=== PATIENT | female | born 1970 | race Caucasian/White ===

== ENCOUNTER 2022-11-12 09:39 | Emergency (ER) | payer OTHER, SELFPAY ==
[2022-11-12 09:40] VITALS: BP 130/55; PULSE 67; RESP 14; TEMP 36.2; O2SAT 99; BMI 27.0
--- NOTE | 2022-11-12 10:02 | EDS_ITS ---
HPI History of Present Illness Chief Complaint: Itching Informant: patient Onset/Context/Timing Onset: Days (3) Context: Gradual Onset Timing: Continuous Quality: Pruritic, erythematous Location: Generalized Worsened by: Nothing Relieved by: Nothing Narrative Narrative: Patient presents with generalized rash that has been getting worse over the past 3 days. Patient states she thinks it is poison flakita. Patient states he feels similar to prior episodes of poison flakita. Patient states she was in the [place] a few days ago. Patient states nothing makes it better nothing makes it worse. Patient states it is very pruritic. Patient denies any vesicles or pustules. Patient denies any discharge or drainage. Patient denies any fevers or chills. [facility] Medical History (Updated 11/12/22 @ 10:[address] Mahamed Lynch DO) Hypothyroidism Home Medications prednisone 20 mg tablet 60 mg (3 x 20 mg) PO DAILY #15 TABLETS 11/12/22 [Rx Last Taken Unknown] Surgical History (Updated 11/12/22 @ 10:[address] Mahamed Lynch DO) H/O section ROS ROS ED Constitutional Constitutional ED: Denies chills or fever(s) Eyes Eyes: Denies blurry vision or change in vision ENT ENT ED: Denies rhinorrhea or sore throat Cardiovascular Cardiovascular: Denies chest pain or palpitations Respiratory/Chest Respiratory/Chest: Denies cough or dyspnea Gastrointestinal Gastrointestinal: Denies nausea or vomiting Genitourinary Genitourinary ED: Denies dysuria or hematuria Musculoskeletal Musculoskeletal: Denies back pain or neck pain Integumentary Reports rash; Denies abscess Neurologic Neurologic: Denies headache(s) or weakness Allergic/Immunologic Allergic/Immunologic ED: Denies mouth swelling or urticaria EXAM Physical Exam Const Vital Signs: 11/12/22 09:40 Temperature 97.1 F L Temperature Source Temporal Pulse Rate 67 Respiratory Rate 14 Blood Pressure 130/55 H Blood Pressure Mean 80 Pulse Ox 99 Oxygen Delivery Method Room Air Positive well nourished and well developed General Appearance ED: well developed and NAD HEENT Reports moist mucous membranes Neck supple and no JVD Resp normal respiratory effort and clear to auscultation bilaterally Cardio regular rate and regular rhythm GI non-tender and non-distended Palpation: soft Neuro oriented x3, CN's II-XII intact bilaterally and no sensory deficits noted Sensorium / Orientation: alert Motor Exam: strength 5/5 throughout Psych mental status grossly normal Skin Skin Narrative: There is an erythematous patchy rash over the face, abdomen, chest, back, and bilateral upper and lower extremities. There are areas of linear vesicles noted over the extremities. There is no discharge or drainage. There is no crusting. There are no petechia noted. There is no involvement of the mucous membranes. MDM MDM MDM Narrative Medical decision making narrative: The rash is consistent with Rhus dermatitis. Patient was given injection of Decadron here. Patient was given a prescription for prednisone. Patient was instructed to use Benadryl or Claritin as needed for any itching. Patient was instructed to follow-up with her primary care physician in 5 to 7 days for reevaluation. Patient understood and was agreeable with the plan. All questions were answered. Discharge Plan Triage Chief Complaint: Itching ED Provider: Mahamed Lynch Dx/Rx/DC Orders Clinical Impression: Rhus dermatitis, Hypothyroidism Instructions: ED Poison Flakita Rash Prescriptions: New prednisone 20 mg tablet 60 mg PO DAILY Qty: 15 0RF Referrals: Greg Delaney MD [Non-Staff] - 5-7 Days Disposition Disposition: Home, Self Care
[2022-11-12] MEDS: dexAMETHasone 10 MG/ML Vial IM (10:21)
[2022-11-12 10:24] VITALS: BP 134/69; PULSE 73; RESP 15; O2SAT 98
== END 2022-11-12 10:27 | disposition home or self-care (01) ==
LOC: ED 10:24
PROVIDERS: Emergency Provider Emergency Medicine; Visit Provider Emergency Medicine
DX: L30.8 Other specified dermatitis (principal); E03.9 Hypothyroidism, unspecified
CPT/HCPCS: 96372; 99282

== ENCOUNTER 2024-12-03 07:52 | Emergency (ER) | payer OTHER, SELFPAY ==
[2024-12-03 07:53] VITALS: BP 136/76; PULSE 75; RESP 15; TEMP 37.6; O2SAT 98; BMI 27.3
--- NOTE | 2024-12-03 07:59 | EKG12_ITS ---
Test Reason : CP Blood Pressure : */* mmHG Vent. Rate : 72 BPM Atrial Rate : 72 BPM P-R Int : 140 ms QRS Dur : 90 ms QT Int : 406 ms P-R-T Axes : 34 20 -15 degrees QTcB Int : 444 ms Normal sinus rhythm Nonspecific T wave abnormality Abnormal ECG Confirmed by AMMON MASON MD ([id number]), editor magazine KERVIN SALAZAR ([id number]) on 12/06/2024 8:28:26 AM Referred By: Confirmed By: AMMON MASON MD
--- NOTE | 2024-12-03 08:04 | EX.ED.DYSGE1 ---
HPI History of Present Illness Chief Complaint: Chest Pain Narrative Narrative: Patient is a 54-year-old female past medical history hypothyroidism who presents to the emergency department chief complaint of chest pain. Patient states that she has had chest pain off-and-on and states that she not necessarily does anything specific to bring this on. Patient states that she follows with a chiropractor as her "ribs are out of place". States that on Friday she had an episode where she had pain in the middle of her chest. She states that she feels like it is hard for her to take a deep breath she states that she followed up with a chiropractor that did an adjustment and this did not help her symptoms. She told the on-call nurse for the primary care physician and they advised her to come here to be evaluated from a cardiac standpoint. Patient denies any recent travel history denies any history of blood clots. Patient denies any smoking, drug use or alcohol use. [facility] Medical History Hypothyroidism Home Medications Medication Instructions Recorded Last Taken Type prednisone 20 mg tablet 60 mg (3 x 20 mg) PO DAILY #15 11/12/22 Unknown Rx TABLETS Allergy/AdvReac Type Severity Reaction Status Date / Time No Known Allergies Allergy Verified 12/03/24 07:57 Surgical History H/O section Social History Smoking Status: Never smoker ROS ROS ED ROS Narrative Constitutional: Denies any fevers, chills, headaches, lightness, dizziness Cardiovascular: Denies any chest pain currently but complains of chest pain as above Respiratory: Complains of difficulty taking a deep breath denies coughing wheezing Abdomen: Denies abdominal pain nausea vomit diarrhea : Denies any urine symptoms Neurological: Denies any numbness, wheeze, tingling Musculoskeletal: Denies back pain Skin: Denies any rashes or lesions EXAM Physical Exam Narrative Exam Narrative: General: Patient was lying in bed rest comfortably did not appear to be in acute distress Head: Atraumatic, normocephalic Eyes: PERRL bilaterally, EOMI bilaterally, no conjunctival injection noted Neck: Soft, supple, trachea midline Cardiovascular: Regular rate and rhythm Respiratory: Clear to auscultation bilaterally Abdomen: Soft, nondistended Extremities: Radial pulses +2/4 in the bilateral extremities, +5/5 strength noted in the bilateral upper and lower extremities Neurological: Patient follow commands that she was at [facility] year is 2024 Skin: Warm, dry, intact Const Vital Signs: 12/03/24 07:53 12/03/24 07:59 12/03/24 08:15 Temperature 99.7 F H Temperature Source Oral Pulse Rate 75 Respiratory Rate 15 Respiratory Pattern Normal Blood Pressure 136/76 H Blood Pressure Mean 96 Pulse Ox 98 Oxygen Delivery Method Room Air Room Air 12/03/24 08:53 12/03/24 10:00 Temperature Temperature Source Pulse Rate 62 61 Respiratory Rate 20 H 18 Respiratory Pattern Blood Pressure 142/60 H Blood Pressure Mean 87 Pulse Ox 97 99 Oxygen Delivery Method Room Air MDM MDM MDM Narrative Medical decision making narrative: Patient is a 54-year-old female who presents to the emergency department from the chief complaint chest pain and difficulty taking a deep breath. On the differential diagnose includes but element to ACS, pneumonia, pneumothorax, PE. Once workup is obtained reviewed she will be reevaluated. Patient is pain-free at this point time. Patient CBC was reviewed showed no evidence leukocytosis white blood count normal at 5.5, he was 14.5, plate count of 312. Patient D-dimer negative at 0.32. Patient sodium normal 137, potassium normal 3.9, creatinine was normal at 0.91. Patient's troponin was less than 6 with a delta troponin of less than 6. Patient's EKG showed sinus rhythm rate of 72 bpm. Patient's chest x-ray reviewed by myself and by radiology showed no acute focal consolidations. HEART Score for Major Cardiac Events from [email or web address] on 12/03/2024 All calculations should be rechecked by clinician prior to use RESULT SUMMARY: 1 points Low Score (0-3 points) Risk of MACE of 0.9-1.7%. INPUTS: History —> 0 = Slightly suspicious EKG —> 0 = Normal Age —> 1 = 45-64 Risk factors —> 0 = No known risk factors Initial troponin —> 0 = <=ormal limit On reevaluation the patient she is feeling better she would like to go home at this point in time. Patient was advised that she needs to call her primary care physician and obtain stress test in the outpatient setting. Patient's heart score is low risk. She is agreeable this plan all question concerns answered she was discharged home in stable condition. Lab Data Labs: Laboratory Results - last 24 hr 12/03/24 12/03/24 08:10 10:15 WBC 5.5 RBC 4.51 Hgb 14.5 Hct 41.9 MCV 92.9 MCH 32.2 H MCHC 34.6 RDW Std Deviation 40.9 RDW Coeff of Og 12.0 Plt Count 312 MPV 9.6 Immature Gran % (Auto) 0.700 Neut % (Auto) 64.5 Lymph % (Auto) 22.8 [place] % (Auto) 8.9 Eos % (Auto) 1.8 Baso % (Auto) 1.3 H Absolute Neuts (auto) 3.5 Absolute Lymphs (auto) 1.25 Nucleated RBC % 0 D-Dimer Quant (PE/DVT) 0.32 Sodium 137 Potassium 3.9 Chloride 103 Carbon Dioxide 22.1 Anion Gap 12 BUN 18 Creatinine 0.91 Estim Creat Clear Calc 78.44 Est GFR (MDRD) Non-Af 76 BUN/Creatinine Ratio 19.6 Glucose 135 H Calcium 9.3 Troponin T High Sens < 6 Troponin T Hi Sens 2 Hr < 6 Radiography Diagnostic Testing: Clinical Impression(s) from Imaging Studies Chest X-Ray 12/03/24 08:30 IMPRESSION: No focal consolidations. Reading Location: [facility] [address] Discharge Plan Triage Chief Complaint: Chest Pain ED Provider: Logan Akhtar Dx/Rx/DC Orders Clinical Impression: Chest pain, Hypothyroidism Prescriptions: No Action prednisone 20 mg tablet 60 mg PO DAILY Qty: 15 0RF Primary Care Provider: Angelic Alfonso Referrals: Angelic Alfonso NP-C [Primary Care Provider] - Activity Restrictions/Additional Instructions: Follow-up with your doctor in the outpatient setting. Have a cardiac stress test obtained. Return with worsening symptoms or any other concerns in the meantime. Your blood work here today did not show any acute findings your chest x-ray was normal. Print Language: Slovak Disposition Disposition: Home, Self Care
[2024-12-03 08:22] LABS: Hematocrit 41.9 % (37-47); Hemoglobin 14.5 g/dL (12.0-15.0); Immature Granulocytes Count 0.040 X10^3/uL (0.0-0.0); Mean Corp Hgb Conc 34.6 g/dL (32-36); Mean Corpuscular Volume 92.9 fL (81-99); Mean Platelet Vol. 9.6 fl (6.2-12.0); NRBC Flagged by Analyzer 0 % (0-5); Platelet Count 312 K/mm3 (150-450); RBC Distribution Width CV 12.0 % (11.6-14.6); RBC Distribution Width SD 40.9 fl (35.1-43.9); Red Blood Count 4.51 M/mm3 (4.2-5.4); White Blood Count 5.5 K/mm3 (4.4-11.0)
--- NOTE | 2024-12-03 08:30 | RAD_ITS ---
PROCEDURE: CHEST PA AND LATERAL 12/03/2024 REASON FOR EXAM: CHEST PAIN TECHNIQUE: CHEST PA AND LATERAL COMPARISON: None FINDINGS: No focal consolidation. No pleural effusion or pneumothorax. Cardiac silhouette is within normal limits. No acute fractures. RAD/Chest PA and Lateral IMPRESSION: No focal consolidations. Reading Location: [id number]
[2024-12-03 08:34] LABS: D-Dimer Quantitative (DVT/PE) 0.32 FEU/ug/m (0.27-0.49)
[2024-12-03] MEDS: 0.9% Normal Saline (1000mL) 1,000 ML 999 ML IV (08:44)
[2024-12-03 08:53] VITALS: BP 142/60; PULSE 62; RESP 20; O2SAT 97
[2024-12-03 09:01] LABS: Troponin T High Sensitivity < 6 ng/L (<=14)
[2024-12-03 09:05] LABS: Anion Gap 12 (5-15); BUN 18 mg/dL (4-19); BUN/Creat Ratio 19.6 RATIO (10-20); Calcium,Total 9.3 mg/dL (7.6-11.0); Carbon Dioxide 22.1 mmol/L (21.0-32.0); Chloride 103 mmol/L (98-108); Estimated Creatinine Clearance 78.44 ml/min (50-250); Glucose 135 mg/dL (70-99); Potassium 3.9 mmol/L (3.3-5.1)
[2024-12-03 10:00] VITALS: PULSE 61; RESP 18; O2SAT 99
[2024-12-03 10:46] LABS: Troponin T High Sens 2 HR < 6 ng/L (<=14)
[2024-12-03 11:19] VITALS: BP 142/60; PULSE 71; RESP 14; TEMP 36.6; O2SAT 97
--- OUTSIDE RECORDS SUMMARY | 2024-12-03 11:33 | XMS RPT_ITS | CCD ---
Author Organization [facility] Inform ion Partnership [facility] Care Team Providers Care Cookie Mixer Helper Name Role Phone Renard Walker Primary Care Provider [phone] Mahamed Lynch Attending Unavailable Care Physician, No Primary Primary Care Unava ilable Renard Walker MD Primary Care Provider LETTY ALFONSO Attending Unavailable RENARD WALKER Primary Care Unavailable LETTY ALFONSO Attending Unavailable RENARD WALKER Primary Care Unavailable Kaden RAILROAD SHOP INSPECTOR-C, Letty Primary Care Provider Dr. Logan Akhtar DO Emergency Provider Medications Current Medications Medication Drug Class(es) Dates Sig (Normalized) Sig (Original) azithromycin 250 mg oral tablet (1 source) Macrolide Antimicrobial Start: 01-06-2023 End: 01-11-2023 azithromycin (Zithromax) 250 MG tablet Indications: Acute non-recurrent frontal sinusitis Take 2 tabs (500 mg) by mouth today, than 1 daily for 4 days. 6 tablet 0 01/06/2023 01/11/2023 Active hydrocortisone 10 mg/ml / neomycin 3.5 mg/ml / polymyxin b 32585 unt/ml otic suspension (1 source) Aminoglycoside Antibacterial, Polymyxin-class Antibacterial, Corticosteroid Start: 01-03-2022 End: 01-08-2022 neomycin-polymyxin- hydrocortisone (CORTISPORIN) 3.5-10,000-1 mg/mL-unit/mL-% otic suspension Indications: Acute otitis externa of left ear, unspecified type Use 4 Drops in both ears three times daily for 5 days. 10 mL 0 01/03/2022 01/08/2022 Active Comment on above: Use 4 Drops in both ears three times daily for 5 days. levothyroxine sodium 0.112 mg oral tablet (12 sources) l-Thyroxine Start: 07-15-2023 End: 05-27-2024 take 1 tablet by mouth once daily levothyroxine (Synthroid) 112 MCG tablet Indications: Hypothyroidism (acquired) Take 1 tablet (112 mcg) by mouth daily. 90 tablet 3 05/27/2024 Active Start: 05-10-2022 End: 01-31-2023 take 1 tablet by mouth once daily levothyroxine (Synthroid, Levoxyl) 112 MCG tablet Indications: Hypothyroidism (acquired) Take 1 tablet (112 mcg) by mouth daily. 90 tablet 1 01/31/2023 Active levothyroxine (S YNTHROID) 100 mcg tablet Indications: Viral URI with cough Take 112 mcg by mouth daily before breakfast. 0 Active Comment on above: Take 112 mcg by mout h daily before breakfast. predniSONE 20 mg oral tablet (2 sources) Start: 11-12-2022 take 3 tablets by mouth once daily Prednisone 20 mg tablet Active 60 mg PO DAILY November 12, 2022 12:00am Start: 11-12-2022 take 60 mg by mouth once daily Prednisone Active 60 MG PO DAILY November 12, 2022 12:00am Completed/Discontinued Medications Medication Drug Class(es) Dates Sig (Normalized) Sig (Original) ciprofloxacin 3 mg/ml / dexamethasone 1 mg/ml otic suspension (1 source) Corticosteroid, Quinolone Antimicrobial Start: 01-03-2022 End: 01-03-2022 ciprofloxacin-dex AMETHasone (CIPRODEX) 0.3-0.1 % otic suspension Indications: Acute otitis externa of left ear, unspecified type Use 4 Drops in the left ear twice daily. 7.5 mL 0 01/03/2022 01/03/2022 Discontinued Comment on above: Use 4 Drops in the l eft ear twice daily. fluticasone propionate 0.05 mg/actuat metered dose nasal spray (1 source) Corticosteroid Start: 01-03-2022 take 1 spray(s) nasal route once daily fluticasone (FLONASE ALLERGY RELIEF) 50 mcg/actuation nasal spray Indications: Acute otitis externa of left ear, unspecified type Use 1 [place] in each nostril once daily. 9.9 mL 0 01/03/2022 Active Comment on above: Use 1 [place] in each nostril once daily. Problems Active Problems Problem Classification Problem Date Documented Da te Episodic/Chronic Allergic reactions (10 sources) Contact dermatitis due to Genus Toxicodendron; Translations: [Unspecified contact dermatitis due to plants, except food] Onset: 11-19-2022 Resolved: 04-14-2023 11-12-2022 Episodic Disorders of lipid metabolism (9 sources) Pure hypercholesterolemi a; Translations: [Pure hypercholesterolemi a, unspecified] Onset: 07-14-2015 02-25-2022 Chronic Menstrual disorders (1 source) Dysmenorrhea; Translations: [Dysmenorrhea, unspecified] Onset: 07-07-2008 07-07-2008 Chronic Nonspecific chest pain (1 source) Chest pain; Translations: [Chest pain, unspecified] 12-03-2024 Episodic Other ear and sense organ disorders (1 source) Acute otitis externa of left ear; Translations: [Unspecified acute noninfective otitis externa, left ear] Episodic Sprains and strains (4 sources) Shoulder strain; Translations: [Strain of unspecified muscle, fascia and tendon at shoulder and upper arm level, left arm, initial encounter] Onset: 05-26-2024 05-26-2024 Episodic Thyroid disorders (18 sources) Acquired hypothyroidism; Translations: [Hypothyroidism, unspecified] Onset: 07-14-2015 10-29-2022 Chronic Past or Other Problems Problem Classification Problem Date Documented Da te Episodic/Chronic Other female genital disorders (1 source) Hypertrophy of uterus; Translations: [Hypertrophy of uterus] Onset: 07-07-2008 07-07-2008 Episodic Other screening for suspected conditions (not mental disorders or infectious disease) (9 sources) Patient encounter status; Translations: [Encounter for screening for lipoid disorders] Onset: 09-08-2023 09-08-2023 Episodic Other upper respiratory infections (8 sources) Acute frontal sinusitis; Translations: [Acute frontal sinusitis, unspecified] Onset: 01-06-2023 Resolved: 04-14-2023 01-06-2023 Episodic Residual codes; unclassified (5 sources) Mammogram declined; Translations: [Procedure and treatment not carried out because of patient's decision for unspecified reasons] Onset: 09-08-2023 09-08-2023 Episodic Residual codes; unclassified (5 sources) Patient refused laboratory test; Translations: [Procedure and treatment not carried out because of patient's decision for unspecified reasons] Onset: 09-08-2023 09-08-2023 Episodic Residual codes; unclassified (5 sources) Colon cancer screening declined; Translations: [Procedure and treatment not carried out because of patient's decision for unspecified reasons] Onset: 09-08-2023 09-08-2023 Episodic Results Test Name Value Interpretation Reference Range Facility Absolute lymphocyte countOrd ered By: Logan Akhtar on 12-03-2024 Lymphocytes Auto (Unsp spec) [#/Vol] 1.25 10*3/uL 0.83-4.51 [facility] Absolute neutrophil countOrd ered By: Logan Akhtar on 12-03-2024 Neutrophils (Bld) [#/Vol] 3.5 10*3/uL 2.0-7.7 [facility] Anion gap in Serum or Plasma Ordered By: Logan Akhtar on 12-03-2024 Anion gap [Moles/Vol] 12 mmol/L 5-15 [facility] Automated lymphocyte count a s percentage of total leukocytesOrdered By: Logan Akhtra on 12-03-2024 Lymphocytes/100 WBC Auto (Unsp spec) 22.8 % 19-41 [facility] BUN/creatinine ratioOrdered By: Logan Akhtar on 12-03-2024 Urea nitrogen/Creatinine [Mass ratio] 19.6 mg/mg 10-20 [facility] Basophil percentageOrdered B y: Logan Akhtar on 12-03-2024 Basophils/100 WBC (Bld) 1.3 % High 0-1 [facility] Carbon dioxide, total [Moles /volume] in Central venous bloodOrdered By: Logan Akhtar on 12-03-2024 CO2 [Moles/Vol] 22.1 mmol/L 21.0-32.0 [facility] Chloride assayOrdered By: Aidan Akhtar on 12-03-2024 Chloride [Moles/Vol] 103 mmol/L 98-108 [facility] Eosinophil percentageOrdered By: Logan Akhtar on 12-03-2024 Eosinophils/100 WBC (Bld) 1.8 % 0-5 [facility] Erythrocyte distribution wid th ratioOrdered By: Logan Akhtar on 12-03-2024 Erythrocyte distribution width (RBC) [Ratio] 12.0 % 11.6-14.6 [facility] Erythrocyte distribution wid th standard deviationOrdered By: Logan Akhtar on 12-03-2024 Erythrocyte distribution width (RBC) [Ratio] 40.9 fl 35.1-43.9 [facility] Glomerular filtration rate ( GFR) estimation/1.73 sq m using serum, plasma, or whole bOrdered By: Logan Akhtar on 12-03-2024 GFR/1.73 sq M.predicted among non-blacks MDRD (S/P/Bld) [Vol rate/Area] 76 mL/min/{1.73_m2} >60 [facility] Comment on above: mL/min/1.73m2 CKD-EP I Creatinine Equation (2020) Hematocrit Auto (Bld) [Volum e fraction]Ordered By: Logan Akhtar on 12-03-2024 Hematocrit (Bld) [Volume fraction] 41.9 % 37-47 [facility] Hemoglobin measurementOrdere d By: Logan Akhtar on 12-03-2024 Hemoglobin (Bld) [Mass/Vol] 14.5 g/dL 12.0-15.0 [facility] Immature granulocytes/100 WB C Auto (Bld)Ordered By: Logan Akhtar on 12-03-2024 Immature granulocytes/100 WBC (Bld) 0.700 % 0.0-0.9 [facility] Comment on above: IG% - Immature Granu locytes (promyelocytes, myelocytes and metamyelocytes) > 1% indicates that a LEFT SHIFT is Present. MCV (mean corpuscular volume ) determinationOrdered By: Logan Akhtar on 12-03-2024 MCV (RBC) [Entitic vol] 92.9 fL 81-99 [facility] Mean corpuscular hemoglobin (MCH) determinationOrdered By: Logan Akhtar on 12-03-2024 MCH (RBC) [Entitic mass] 32.2 pg High 27.0-32.0 [facility] Mean corpuscular hemoglobin concentration (MCHC) determinationOrdered By: Logan Akhtar on 12-03-2024 MCHC (RBC) [Mass/Vol] 34.6 g/dL 32-36 [facility] Mean platelet volume determi nationOrdered By: Logan Akhtar on 12-03-2024 Platelet mean volume (Bld) [Entitic vol] 9.6 fL 6.2-12.0 [facility] Monocyte percentageOrdered B y: Logan Akhtar on 12-03-2024 Monocytes/100 WBC (Bld) 8.9 % 0-10 [facility] Neutrophil percentageOrdered By: Logan Akhtar on 12-03-2024 Neutrophils/100 WBC (Bld) 64.5 % 47-70 [facility] Nucleated red blood cell per centageOrdered By: Logan Akhtar on 12-03-2024 Nucleated RBC/100 WBC (Bld) [Ratio] 0 % 0-5 [facility] Platelet countOrdered By: Aidan Akhtar on 12-03-2024 Platelets (Bld) [#/Vol] 312 10*3/uL 150-450 [facility] Potassium measurement (mass/ volume)Ordered By: Logan Akhtar on 12-03-2024 Potassium (Unsp spec) [Mass/Vol] 3.9 mmol/L 3.3-5.1 [facility] RBC Auto (Bld) [#/Vol]Ordere d By: Logan Akhtar on 12-03-2024 RBC (Bld) [#/Vol] 4.51 10*6/uL 4.2-5.4 [facility] Serum creatinine measurement (mass/volume)Ordered By: Logan Akhtar on 12-03-2024 Creatinine [Mass/Vol] 0.91 mg/dL 0.70-1.20 [facility] Serum glucose measurement (m ass/volume)Ordered By: Logan Akhtar on 12-03-2024 Glucose [Mass/Vol] 135 mg/dL High 70-99 [facility] Serum or plasma calcium alexis urement (mass/volume)Ordered By: Logan Akhatr on 12-03-2024 Calcium [Mass/Vol] 9.3 mg/dL 7.6-11.0 [facility] Serum or plasma urea nitroge n measurement (mass/volume)Ordered By: Logan Akhtar on 12-03-2024 Urea nitrogen [Mass/Vol] 18 mg/dL 4-19 [facility] Sodium levelOrdered By: Maximilian Akhtar on 12-03-2024 Sodium [Moles/Vol] 137 mmol/L 133-145 [facility] Troponin T.cardiac [Mass/vol ume] in Serum or Plasma by High sensitivity methodOrdered By: Logan Akhtar on 12-03-2024 Troponin T.cardiac High sensitivity method [Mass/Vol] < 6 ng/L <14 [facility] Troponin T.cardiac High sensitivity method [Mass/Vol] < 6 ng/L <14 [facility] White blood cell (WBC) count Ordered By: Logan Akhtar on 12-03-2024 WBC (Bld) [#/Vol] 5.5 10*3/uL 4.4-11.0 [facility] TSHon 05-27-2024 TSH Qn 2.28 m[IU]/L mIU/L [facility] Comment on above: Reference Range > or = 20 Years 0.40-4.50 Ranges First trimester 0.26-2.66 Second trimester 0.55-2.73 Third trimester 0.43-2.91 TSH Qnon 05-27-2024 [facility] 29on 05-26-2024 29 Addended by: LETTY ALFONSO on: 05/27/2024 06:37 AM Modules accepted: Orders Normal [facility] Office Visiton 05-26-2024 Follow-up visit [id number] Little Gonsales 1970 F Date Provider Department Center 05/26/2024 [id number] ALFONSO [facility] Family History Problem Relation Age of Onset High Blood Pressure Mother No Known Problems Father Family Status - Relation Status Age at Mother Alive Father Level of Service:99844 [place] OFFICE/OUTPATIENT ESTABLISHED LOW MDM 20 MIN Reason for Visit and Comments: Medication Check [[id number]] Health Maintenance [872] - Cervical Cancer Screening-Ref to OBGYN Pneumococcal Vaccine-declined Influenza Vaccine-declined COVID-19 Vaccine-declined Normal [facility] Progress Noteon 05-26-2024 Progress Note Check TSH today. Continue levothyroxine 112 mcg daily Normal [facility] Progress Note Consistent with mild left shoulder strain. Recommend RICE, then starting exercises provided. Follow-up for worsening or failure for symptoms to continue to improve Normal [facility] Progress Note 05/26/2024 Little Gonsales (: 1970) is a 53 y.o. female , Established patient, here for evaluation of the following chief complaint(s): Medication Check and Health Maintenance (Cervical Cancer Screening-Ref to OBGYN/Pneumococcal Vaccine-declined/Influe nza Vaccine-declined/COVID- 19 Vaccine-declined/) ASSESSMENT/PLAN: 1. Hypothyroidism (acquired) Assessment & Plan: Check TSH today. Continue levothyroxine 112 mcg daily Orders: - TSH 2. Left shoulder strain, initial encounter Assessment & Plan: Consistent with mild left shoulder strain. Recommend RICE, then starting exercises provided. Follow-up for worsening or failure for symptoms to continue to improve Follow up in about 1 year (around 05/26/2025) for as directed pending test results. SUBJECTIVE/OBJECTIVE: HPI - Little Gonsales (: 1970) is a 53 y.o. female , Established patient, here for the evaluation of the following chief complaint(s): Medication Check and Health Maintenance (Cervical Cancer Screening-Ref to OBGYN/Pneumococcal Vaccine-declined/Influe nza Vaccine-declined/COVID- 19 Vaccine-declined/) Patient presents for med check today, denies any acute concerns. Declines any blood work today other than TSH. Reports taking her levothyroxine 112 mcg consistently with only occasional missed dose. Patient does report she occasionally has some soreness of her left shoulder usually flared up after skiing. No numbness or tingling and range of motion is only minimally affected with raising arm above the head. Prior to Admission medications Medication Sig Start Date End Date Taking? Authorizing Provider levothyroxine (Synthroid) 112 MCG tablet TAKE 1 TABLET BY MOUTH ONCE A DAY 07/15/23 Yes Renard Walker MD Review of Systems Constitutional: Negative. HENT: Negative. Respiratory: Negative. Cardiovascular: Negative. Gastrointestinal: Negative. Genitourinary: Negative for difficulty urinating. Musculoskeletal: Negative. Neurological: Negative. Psychiatric/Behavioral: Negative. Vitals: 05/26/24 1300 BP: 119/66 Pulse: 75 Resp: 20 Temp: 36.8 ?C (98.3 ?F) TempSrc: Infrared SpO2: 96% Weight: 178 lb 12.8 oz (81.1 kg) Physical Exam Constitutional: General: She is not in acute distress. Appearance: Normal appearance. She is not ill-appearing. HENT: Head: Normocephalic and atraumatic. Mouth/Throat: Mouth: Mucous membranes are moist. Pharynx: Oropharynx is clear. No oropharyngeal exudate or posterior oropharyngeal erythema. Eyes: Conjunctiva/sclera: Conjunctivae normal. Cardiovascular: Rate and Rhythm: Normal rate and regular rhythm. Pulses: Normal pulses. Heart sounds: Normal heart sounds. Pulmonary: Effort: Pulmonary effort is normal. Breath sounds: Normal breath sounds. Musculoskeletal: Left shoulder: Decreased range of motion. Comments: Very slight decreased shoulder abduction, otherwise normal range of motion Lymphadenopathy: Cervical: No cervical adenopathy. Neurological: Mental Status: She is alert and oriented to person, place, and time. Psychiatric: Mood and Affect: Mood normal. Behavior: Behavior normal. Thought Content: Thought content normal. Judgment: Judgment normal. An electronic signature was used to authenticate this note. JOSEPHINE Green CNP 05/26/2024 1:39 PM [facility] Progress Note Patient was identifi ed by name and Date of . Health Maintenance Due Topic Cervical Cancer Screening-Ref to OBGYN Pneumococcal Vaccine-declined Influenza Vaccine-declined COVID-19 Vaccine-declined [facility] 36on 05-20-2024 36 Noted. Agree with disposition. [facility] 36 Notified, she states she will have it drawn at the appointment, not prior. [facility] 36 Name of caller: Guerline lopez Contact phone number: [phone] Relationship to Patient: patient Provider: Letty GRULLON Practice: [facility] Chief Complaint/Reason for Call: Patient stated she is scheduled for med refill appointment on 05/26/24 and is inquiring if Letty wants to put the lab order in before her appointment to check her thyroid. Patient stated she is not interested in checking her cholesterol. Please advise. Thank you. Best time of day caller can be reached: any Patient advised that office/PCP has 24-48 business hours to return their call: No [facility] Office Visiton 09-08-2023 Follow-up visit [id number] Little Gonsales 1970 F Date Provider Department Center 09/08/2023 [id number] ALFONSO [facility] Family History Problem Relation Age of Onset High Blood Pressure Mother No Known Problems Father Family Status - Relation Status Age at Mother Alive Father Level of Service:89391 [place] PERIODIC PREVENTIVE MED EST PATIENT 40-64YRS Reason for Visit and Comments: Annual Exam [83] Health Maintenance [872] - HIV/Hep C-declined Colon-declined Tdap-declined Pap-declined Hep B-declined Mammo-pended Zoser-declined Covid-declined PHQ-completed TSH-pe- nded Normal [facility] Progress Noteon 09-08-2023 Progress Note Check lipid panel. Currently not on any medications. Normal [facility] Progress Note Check TSH today. Continue levothyroxine 112 mcg daily Normal [facility] Progress Note 09/08/2023 Little Gonsales (: 1970) is a 53 y.o. female , Established patient, here for evaluation of the following chief complaint(s): Annual Exam and Health Maintenance (/HIV/Hep C-declined/Colon-declin ed/Tdap-declined/Pap-de clined/Hep B-declined/Mammo-pended /Zoser-declined/Covid-d eclined/PHQ-completed/T SH-pended) ASSESSMENT/PLAN: 1. Annual physical exam 2. Screening for cholesterol level - Lipid panel 3. Screening for deficiency anemia - CBC 4. Screening for diabetes mellitus - Comprehensive metabolic panel 5. Hypothyroidism (acquired) Assessment & Plan: Check TSH today. Continue levothyroxine 112 mcg daily Orders: - TSH 6. Pure hypercholesterolemia Assessment & Plan: Check lipid panel. Currently not on any medications. 7. Mammogram declined 8. Pap smear of cervix declined 9. Colon cancer screening declined Follow up for as directed pending test results. SUBJECTIVE/OBJECTIVE: HPI - Little Gonsales (: 1970) is a 53 y.o. female , Established patient, here for the evaluation of the following chief complaint(s): Annual Exam and Health Maintenance (/HIV/Hep C-declined/Colon-declin ed/Tdap-declined/Pap-de clined/Hep B-declined/Mammo-pended /Zoser-declined/Covid-d eclined/PHQ-completed/T SH-pended) Presents for her annual physical with fasting labs. Declines mammogram. Declines Pap smear. Declines colon cancer screening. Reports overall is feeling pretty well. Things at home are going okay however her suffers from bipolar disorder currently manic. She states she has limited time for today's appointment due to he has an appointment at [place] at 9:30 AM this morning. She reports that she has been handling everything pretty well and has set up some counseling services for herself online that starts soon. She has no acute complaints today. Prior to Admission medications Medication Sig Start Date End Date Taking? Authorizing Provider levothyroxine (Synthroid) 112 MCG tablet TAKE 1 TABLET BY MOUTH ONCE A DAY 07/15/23 Yes Renard Walker MD Review of Systems Constitutional: Negative. HENT: Negative. Respiratory: Negative. Cardiovascular: Negative. Genitourinary: Negative. Neurological: Negative. Psychiatric/Behavioral: Negative for agitation, decreased concentration, dysphoric mood, hallucinations, self-injury, sleep disturbance and suicidal ideas. The patient is not nervous/anxious. Vitals: 09/08/23 0814 BP: 118/60 Pulse: 57 Resp: 18 Temp: 36.6 ?C (97.9 ?F) TempSrc: Infrared SpO2: 97% Weight: 170 lb (77.1 kg) Height: 5' 7" (1.702 m) Physical Exam Constitutional: General: She is not in acute distress. Appearance: Normal appearance. She is normal weight. She is not ill-appearing. HENT: Head: Normocephalic and atraumatic. Right Ear: Tympanic membrane, ear canal and external ear normal. There is no impacted cerumen. Left Ear: Tympanic membrane, ear canal and external ear normal. There is no impacted cerumen. Nose: Nose normal. No congestion or rhinorrhea. Mouth/Throat: Mouth: Mucous membranes are moist. Pharynx: Oropharynx is clear. Uvula midline. No oropharyngeal exudate or posterior oropharyngeal erythema. Eyes: Conjunctiva/sclera: Conjunctivae normal. Pupils: Pupils are equal, round, and reactive to light. Cardiovascular: Rate and Rhythm: Normal rate and regular rhythm. Pulses: Normal pulses. Heart sounds: Normal heart sounds. Pulmonary: Effort: Pulmonary effort is normal. No respiratory distress. Breath sounds: Normal breath sounds. Abdominal: General: Abdomen is flat. Bowel sounds are normal. Palpations: Abdomen is soft. Tenderness: There is no abdominal tenderness. There is no right CVA tenderness or left CVA tenderness. Musculoskeletal: General: Normal range of motion. Cervical back: Normal range of motion and neck supple. No rigidity or tenderness. Lymphadenopathy: Cervical: No cervical adenopathy. Skin: General: Skin is warm and dry. Findings: No erythema or rash. Neurological: General: No focal deficit present. Mental Status: She is alert and oriented to person, place, and time. Psychiatric: Mood and Affect: Mood normal. Behavior: Behavior normal. An electronic signature was used to authenticate this note. Letty Alfonso, CLUTCH INSPECTOR - RADIATION CONTROL TECHNICIAN 09/08/2023 8:49 AM [facility] Progress Note Patient was identifi ed by name and Date of . Health Maintenance Addressed with Patient at Visit: HIV/Hep C-declined Colon-declined Tdap-declined Pap-declined Hep B-declined Mammo-pended Zoser-declined Covid-declined PHQ-completed TSH-pended [facility] 36on 07-15-2023 36 Patient scheduled 09/08/23 with Kaden [facility] 36 Rx sent, no refills, she needs a follow-up appointment to continue to get medications. [facility] 36 Prescription Request : Last medication check: 12/04/22 Last physical exam: 04/17/22 Next scheduled appointment: na Last date of refill on this medication 01/31/23 MCM message sent advising patient to schedule physical and fasting albs work. [facility] Emergency Department Summary on 11-12-2022 Emergency Department Summary [facility] Medical Records Department [address] [place] [address] Emergency Department Summary 11/12/22 MR#: [id number] Acct: [id number] Name: LITTLE GONSALES Rep #: [id number] : 1970 52 From: Mahamed Lynch DO PCP: Care Physician,No Primary Status:DEP ER Location: ED HPI History of Present Illness Chief Complaint: Itching Informant: patient Onset/Context/Timing Onset: Days (3) Context: Gradual Onset Timing: Continuous Quality: Pruritic, erythematous Location: Generalized Worsened by: Nothing Relieved by: Nothing Narrative Narrative: Patient presents with generalized rash that has been getting worse over the past 3 days. Patient states she thinks it is poison jarod. Patient states he feels similar to prior episodes of poison jarod. Patient states she was in the [place] a few days ago. Patient states nothing makes it better nothing makes it worse. Patient states it is very pruritic. Patient denies any vesicles or pustules. Patient denies any discharge or drainage. Patient denies any fevers or chills. [facility] Medical History (Updated 11/12/22 @ 10:[address] Mahamed Lynch, ) Hypothyroidism Home Medications prednisone 20 mg tablet 60 mg (3 x 20 mg) PO DAILY #15 TABLETS 11/12/22 [Rx Last Taken Unknown] Surgical History (Updated 11/12/22 @ 10:[address] Mahamed Lynch, ) H/O section ROS ROS ED Constitutional Constitutional ED: Denies chills or fever(s) Eyes Eyes: Denies blurry vision or change in vision ENT ENT ED: Denies rhinorrhea or sore throat Cardiovascular Cardiovascular: Denies chest pain or palpitations Respiratory/Chest Respiratory/Chest: Denies cough or dyspnea Gastrointestinal Gastrointestinal: Denies nausea or vomiting Genitourinary Genitourinary ED: Denies dysuria or hematuria Musculoskeletal Musculoskeletal: Denies back pain or neck pain Integumentary Reports rash; Denies abscess Neurologic Neurologic: Denies headache(s) or weakness Allergic/Immunologic Allergic/Immunologic ED: Denies mouth swelling or urticaria EXAM Physical Exam Const Vital Signs: 11/12/22 09:40 Temperature 97.1 F L Temperature Source Temporal Pulse Rate 67 Respiratory Rate 14 Blood Pressure 130/55 H Blood Pressure Mean 80 Pulse Ox 99 Oxygen Delivery Method Room Air Positive well nourished and well developed General Appearance ED: well developed and NAD HEENT Reports moist mucous membranes Neck supple and no JVD Resp normal respiratory effort and clear to auscultation bilaterally Cardio regular rate and regular rhythm GI non-tender and non-distended Palpation: soft Neuro oriented x3, CN's II-XII intact bilaterally and no sensory deficits noted Sensorium / Orientation: alert Motor Exam: strength 5/5 throughout Psych mental status grossly normal Skin Skin Narrative: There is an erythematous patchy rash over the face, abdomen, chest, back, and bilateral upper and lower extremities. There are areas of linear vesicles noted over the extremities. There is no disc harge or drainage. There is no crusting. There are no petechia noted. There is no involvement of the mucous membranes. MDM MDM MDM Narrative Medical decision making narrative: The rash is consistent with Rhus dermatitis. Patient was given injection of Decadron here. Patient was given a prescription for prednisone. Patient was instructed to use Benadryl or Claritin as needed for any itching. Patient was instructed to follow-up with her primary care physician in 5 to 7 days for reevaluation. Patient understood and was agreeable with the plan. All questions were answered. Discharge Plan Triage Chief Complaint: Itching ED Provider: Mahamed Lynch Dx/Rx/DC Orders Clinical Impression: Rhus dermatitis, Hypothyroidism Instructions: ED Poison Jarod Rash Prescriptions: New prednisone 20 mg tablet 60 mg PO DAILY Qty: 15 0RF Referrals: Renard Walker MD [Non-Staff] - 5-7 Days Disposition Disposition: Home, Self Care What to do if you have Problems For any increased pain, shortness of breath, bleeding, nausea or vomiting, chest pain, or any unexpected problems, contact your Primary Care Provider. Call [facility] ([phone]) or report to the closest Emergency Room. Call 911 if necessary. 11/12/22 1621 Cosigner Signature (if applicable): CC: No Primary Care Physician Signed Normal [facility] CNOVon 01-03-2022 CNOV Office Visit (FILIPE ) LITTLE GONSALES ([id number]) 1970 F Date Time Provider Department 01/03/22 9:15 AM ANDRE SANTAMARIA During your visit today, we recorded the following information about you: Temperature Pulse Respiration Blood pressure 98.7 degrees 64/minute 6/minute 122/69 Weight Height 77.1 kg 1.702 m Andre Santamaria APRN.CNP 01/03/2022 10:25 AM Signed This note was created using ticketstreetriter. Subjective Little Gonsales is a 51 year old female. HPI by patient: Little is a 51 yo female presenting to the office with the complaint of L ear pain Started approximately a few weeks ago, was at family reunion and had some ear trauma while swimming. Jumped in the water and landed on ear. Associated symptoms include L ear pain and decreased hearing in L ear Denies any other concerns Vaccinated for influenza: No Covid Immunization Dates Overdue - COVID-19 VACCINE (1) Overdue - never done No completion, postpone, frequency change, or communication history exists for this topic. Personal history of Covid: no Flu/RSV contacts: no Strep contacts: no Sick contacts: no Covid + contacts: no Travel in the last 14 days: no Smoking history/second hand smoke: no OTC ear candles, peroxide, colloidal silver drops No antibiotic use in the last 60 days. ALLERGIES No Known Allergies Family History Reviewed Including Cardiac Diseases, Psychiatric Diseases, AND Substance Abuse Problem: Hypertension Relation: Mother Age of Onset: (Not Specified) Problem: Stroke Relation: Other Age of Onset: (Not Specified) Comment: UNCLE Problem: Stroke Relation: Other Age of Onset: (Not Specified) Comment: GRANDMOTHER Problem: Thyroid Relation: Daughter Age of Onset: (Not Specified) Comment: hypo Problem: Thyroid Relation: Sister Age of Onset: (Not Specified) Comment: X-3 One Graves and 2 hypo Social History Tobacco Use Smoking status: Never Smokeless tobacco: Never Vaping Use Vaping Use: Never used Alcohol use: No Drug use: No Review of Systems Constitutional: Negative for chills and fever. HENT: Positive for ear discharge (mostly residual medications drops. Also got a lot of wax out after using ear candle), ear pain and hearing loss (decreased hearing). Negative for congestion, rhinorrhea and sore throat. Respiratory: Negative for cough. Cardiovascular: Negative for chest pain. Allergic/Immunologic: Negative for immunocompromised state. Hematological: Negative for adenopathy. Objective LMP 11/26/2019 Physical Exam Vitals and nursing note reviewed. HENT: Right Ear: Ear canal normal. A middle ear effusion is present. Left Ear: Ear canal normal. Drainage (cerumen vs candle wax vs medication), swelling and tenderness present. A middle ear effusion is present. Nose: Nose normal. Mouth/Throat: Pharynx: Uvula midline. Cardiovascular: Rate and Rhythm: Normal rate and regular rhythm. Heart sounds: Normal heart sounds. Pulmonary: Effort: Pulmonary effort is normal. Breath sounds: Normal breath sounds. Lymphadenopathy: Cervical: No cervical adenopathy. Skin: General: Skin is warm and dry. Neurological: Mental Status: She is alert and oriented to person, place, and time. Assessment and Plan ASSESSMENT/PLAN: 1. Acute otitis externa of left ear, unspecified type - ICD9: 380.10, ICD10: H60.502 - CIPROFLOXACIN 0.3 %-DEXAMETHASONE 0.1 % EAR DROPS,SUSPENSION - FLUTICASONE PROPIONATE 50 MCG/ACTUATION NASAL SPRAY,SUSPENSION Andre Santamaria APRN.CNP Medical Decision Making: Problems: Moderate: New problem with uncertain prognosis Data: Unique test result(s) reviewed: 1 Risk: Moderate: Drug management Medical Decision Making Level: 4 - Moderate Remove COVID19 association Andre Santamaria APRN.CNP 01/03/2022 10:27 AM Signed Addended by: ANDRE SANTAMARIA on: 01/03/2022 10:27 AM Modules accepted: Orders Referring Provider: SELF [[id number]] Allergies As of Date: 01/03/2022 (No Known Allergies) Date Reviewed: 01/03/2022 Reviewed by: Liss Rosenbaum Ma - Fully Assessed Reason for Visit: Ear Pain [817] Cmt: Left ear has been hurting since the end of November. States everything is muffled. She has tried peroxide and silver drops. Primary Visit Diagnosis:Acute otitis externa of left ear, unspecified type [H60.502] Order(s):fluticasone (FLONASE ALLERGY RELIEF) 50 mcg/actuation nasal sprayUse 1 [place] in each nostril once daily.Disp: 9.9 mLRfl: 0 pkrjijjt-qtidgwusx-ifqq ocortisone (CORTISPORIN) 3.5-10,000-1 mg/mL-unit/mL-% otic suspensionUse 4 Drops in both ears three times daily for 5 days.Disp: 10 mLRfl: 0 Prescriptions as of 01/03/2022 - fluticasone (FLONASE ALLERGY RELIEF) 50 mcg/actuation nasal spray Use 1 [place] in each nostril once daily. - hrqvgdrc-boirruzic-kwtd ocortisone (CORTISPORIN) 3.5-10,000-1 mg/mL-unit/mL-% otic suspension Use 4 (more content not included)... Normal [facility] Vital Signs Date Time Vital Sign Value Performing Clinician Facility 12-03-2024 11:19-0400 Body temperature 98 [degF] Letty Bridenthal [employer]ILROAD SHOP INSPECTOR-C Work Phone: [facility] 12-03-2024 11:19-0400 Diastolic blood pressure 60 mm[Hg] Letty Bridenthal [employer]ILRO[employer] SH[employer] INSPECTOR-C Work Phone: [facility] 12-03-2024 11:19-0400 Heart rate 71 /min Letty Bridenthal [employer]RO[employer] INSPECTOR-C Work Phone: [facility] 12-03-2024 11:19-0400 Respiratory rate 14 /min Letty Bridenthal [employer]ILRO[employer] SHOP INSPECTOR-C Work Phone: [facility] 12-03-2024 11:19-0400 SaO2% (BldA) [Mass fraction] 97 % Letty Bridenthal [employer]RO[employer] INSPECTOR-C Work Phone: [facility] 12-03-2024 11:19-0400 Systolic blood pressure 142 mm[Hg] Letty Bridenthal [employer]RO[employer] SHOP INSPECTOR-C Work Phone: [facility] 12-03-2024 07:53-0400 Body height 170.18 cm Letty Bridenthal [employer]RO[employer] INSPECTOR-C Work Phone: [facility] 12-03-2024 07:53-0400 Body mass index (BMI) [Ratio] 27.3 kg/m2 Letty Bridenthal [employer]RO[employer] SHOP INSPECTOR-C Work Phone: [facility] 12-03-2024 07:53-0400 Body weight 79.37 kg Letty Bridenthal [employer]RO[employer] INSPECTOR-C Work Phone: [facility] 05-26-2024 13:00-0500 Body mass index (BMI) [Ratio] 28 kg/m2 Letty Bridenthal CLUTCH INSPECTOR - RADIATION CONTROL TECHNICIAN Work Phone: [facility] 05-26-2024 13:00-0500 Body temperature 98.29 [degF] Letty Bridenthal CLUTCH INSPECTOR - RADIATION CONTROL TECHNICIAN Work Phone: [facility] 05-26-2024 13:00-0500 Body weight 81.1 kg Letty Bridenthal CLUTCH INSPECTOR - RADIATION CONTROL TECHNICIAN Work Phone: [facility] 05-26-2024 13:00-0500 Diastolic blood pressure 66 mm[Hg] Letty Bridenthal CLUTCH INSPECTOR - RADIATION CONTROL TECHNICIAN Work Phone: [facility] 05-26-2024 13:00-0500 Heart rate 75 /min Letty Bridenthal CLUTCH INSPECTOR - RADIATION CONTROL TECHNICIAN Work Phone: [facility] 05-26-2024 13:00-0500 Respiratory rate 20 /min Letty Bridenthal CLUTCH INSPECTOR - RADIATION CONTROL TECHNICIAN Work Phone: [facility] 05-26-2024 13:00-0500 SaO2% (BldA) [Mass fraction] 96 % Letty Bridenthal CLUTCH INSPECTOR - RADIATION CONTROL TECHNICIAN Work Phone: [facility] 05-26-2024 13:00-0500 Systolic blood pressure 119 mm[Hg] Letty Bridenthal CLUTCH INSPECTOR - RADIATION CONTROL TECHNICIAN Work Phone: [facility] 09-08-2023 08:14-0400 Body height 170.2 cm Letty Bridenthal CLUTCH INSPECTOR - RADIATION CONTROL TECHNICIAN Work Phone: [facility] 09-08-2023 08:14-0400 Body mass index (BMI) [Ratio] 26.63 kg/m2 Letty Bridenthal CLUTCH INSPECTOR - RADIATION CONTROL TECHNICIAN Work Phone: [facility] 09-08-2023 08:14-0400 Body temperature 97.9 [degF] Letty Bridenthal CLUTCH INSPECTOR - RADIATION CONTROL TECHNICIAN Work Phone: [facility] 09-08-2023 08:14-0400 Body weight 77.11 kg Letty Bridenthal CLUTCH INSPECTOR - RADIATION CONTROL TECHNICIAN Work Phone: [facility] 09-08-2023 08:14-0400 Diastolic blood pressure 60 mm[Hg] Letty Bridenthal CLUTCH INSPECTOR - RADIATION CONTROL TECHNICIAN Work Phone: [facility] 09-08-2023 08:14-0400 Heart rate 57 /min Letty Bridenthal CLUTCH INSPECTOR - RADIATION CONTROL TECHNICIAN Work Phone: [facility] 09-08-2023 08:14-0400 Respiratory rate 18 /min Letty Bridenthal CLUTCH INSPECTOR - RADIATION CONTROL TECHNICIAN Work Phone: [facility] 09-08-2023 08:14-0400 SaO2% (BldA) [Mass fraction] 97 % Letty Bridenthal CLUTCH INSPECTOR - RADIATION CONTROL TECHNICIAN Work Phone: [facility] 09-08-2023 08:14-0400 Systolic blood pressure 118 mm[Hg] Lettyashely Tavarezenthal CLUTCH INSPECTOR - RADIATION CONTROL TECHNICIAN Work Phone: [facility] 11-12-2022 10:24-0400 Diastolic blood pressure 69 mm[Hg] [facility] 11-12-2022 10:24-0400 Heart rate 73 /min [facility] 11-12-2022 10:24-0400 Respiratory rate 15 /min [facility] 11-12-2022 10:24-0400 SaO2% (BldA) [Mass fraction] 98 % [facility] 11-12-2022 10:24-0400 Systolic blood pressure 134 mm[Hg] [facility] 11-12-2022 09:40-0400 Body height 170.18 cm [facility] 11-12-2022 09:40-0400 Body mass index (BMI) [Ratio] 27 kg/m2 [facility] 11-12-2022 09:40-0400 Body temperature 97.1 [degF] [facility] 11-12-2022 09:40-0400 Body weight 78.19 kg [facility] 01-03-2022 10:00-0400 Body height 170.2 cm Andre Santamaria CLUTCH INSPECTOR.RADIATION CONTROL TECHNICIAN Work Phone: [facility] 01-03-2022 10:00-0400 Body temperature 98.71 [degF] Andre Ball CLUTCH INSPECTOR.RADIATION CONTROL TECHNICIAN Work Phone: [facility] 01-03-2022 10:00-0400 Body weight 77.11 kg Andre Ball CLUTCH INSPECTOR.RADIATION CONTROL TECHNICIAN Work Phone: [facility] 01-03-2022 10:00-0400 Diastolic blood pressure 69 mm[Hg] Andre Ball CLUTCH INSPECTOR.RADIATION CONTROL TECHNICIAN Work Phone: [facility] 01-03-2022 10:00-0400 Heart rate 64 /min Andre Ball CLUTCH INSPECTOR.RADIATION CONTROL TECHNICIAN Work Phone: [facility] 01-03-2022 10:00-0400 Respiratory rate 6 /min Andre Ball CLUTCH INSPECTOR.RADIATION CONTROL TECHNICIAN Work Phone: [facility] 01-03-2022 10:00-0400 SaO2% (BldA) [Mass fraction] 98 % Andre Ball CLUTCH INSPECTOR.RADIATION CONTROL TECHNICIAN Work Phone: [facility] 01-03-2022 10:00-0400 Systolic blood pressure 122 mm[Hg] Andre Ball CLUTCH INSPECTOR.RADIATION CONTROL TECHNICIAN Work Phone: [facility] Encounters Encounter Date Encounter Type Care Provider Facility Start: 12-03-2024 End: 12-03-2024 Emergency department patient visit Letty Alfonso [employer] INSPECTOR-C Work Phone: -Emergency Department Work Phone: Start: 05-26-2024 End: 05-26-2024 Office outpatient visit 15 minutes Lettyernesto Alfonso CLUTCH INSPECTOR - RADIATION CONTROL TECHNICIAN Work Phone: [facility] Comment on above: Hypothyroidism (acqu ired) (Primary Dx); Left shoulder strain, initial encounter Start: 05-26-2024 End: 05-26-2024 ambulatory LETTY ESTELAAL [facility] Start: 05-20-2024 End: 05-20-2024 Telephone encounter Lettyashely Alfonso CLUTCH INSPECTOR - RADIATION CONTROL TECHNICIAN Work Phone: [phone] [place] [address] Comment on above: Lab Orders Start: 09-08-2023 End: 09-08-2023 Patient encounter procedure Letty Alfonso CLUTCH INSPECTOR - RADIATION CONTROL TECHNICIAN Work Phone: [facility] Work Phone: Start: 09-08-2023 End: 09-08-2023 Periodic preventive med est patient 40-64yrs Letty Alfonso CLUTCH INSPECTOR - RADIATION CONTROL TECHNICIAN Work Phone: [facility] Comment on above: Annual physical exam (Primary Dx); Screening for cholesterol level; Screening for deficiency anemia; Screening for diabetes mellitus; Hypothyroidism (acquired); Pure hypercholesterolemia; Mammogram declined; Pap smear of cervix declined; Colon cancer screening declined Start: 09-08-2023 End: 09-08-2023 ambulatory LETTY ALFONSO [facility] Start: 09-08-2023 End: 09-08-2023 Encounter for general adult medical examination without abnormal findings LETTY ALFONSO [facility] Start: 01-31-2023 Ginette Walker MD Work Phone: [facility] Comment on above: Hypothyroidism (acqu ired) Start: 01-06-2023 ambulatory Radha Greer RN [facility] Clinical Communication Start: 01-06-2023 Patient encounter procedure Radha Greer RN [facility] Clinical Communication Start: 01-06-2023 End: 01-06-2023 Office outpatient visit 15 minutes Letty Tavarezsusan CLUTCH INSPECTOR - RADIATION CONTROL TECHNICIAN Work Phone: [facility] Comment on above: Acute non-recurrent frontal sinusitis (Primary Dx) Start: 11-12-2022 End: 11-12-2022 Emergency department patient visit Mahamed Lynch Facility:[facility] Start: 11-12-2022 End: 11-12-2022 Emergency department patient visit [facility]-Emergency Department Work Phone: Start: 10-29-2022 Ginette Walker MD Work Phone: [facility] Comment on above: Hypothyroidism (acqu ired) Start: 01-03-2022 End: 01-03-2022 Office outpatient new 30 minutes Andre Rosalio CLUTCH INSPECTOR.RADIATION CONTROL TECHNICIAN Work Phone: [facility] Comment on above: Acute otitis externa of left ear, unspecified type (Primary Dx) Procedures Date Procedure Procedure Detail Performing Clinician Start: 12-03-2024 X-ray of chest, PA a nd lateral views Letty Bridenthal [employer]RO[employer] INSPECTOR-C Work Phone: Start: 12-03-2024 D-dimer assay, quantitative Letty Bridenthal [employer]RO[employer] SH[employer] INSPECTOR-C Work Phone: Comment on above: NORMAL D-Dimer level (<0.50) indicates no DVT or PE. Start: 12-03-2024 Estimated creatinine clearance Letty Bridenthal [employer] INSPECTOR-C Work Phone: Start: 05-26-2024 End: 05-26-2024 Thyrotropin [Units/volume] in Serum or Plasma Letty Bridenthal CLUTCH INSPECTOR - RADIATION CONTROL TECHNICIAN Work Phone: Start: 09-08-2023 Adult depression scr eening assessment Letty Bridenthal CLUTCH INSPECTOR - RADIATION CONTROL TECHNICIAN Work Phone: Start: 09-08-2023 Thyrotropin [Units/v olume] in Serum or Plasma Letty Bridenthal CLUTCH INSPECTOR - RADIATION CONTROL TECHNICIAN Work Phone: Start: 04-17-2022 Adult depression scr eening assessment Renard Walker MD Work Phone: Start: 04-17-2022 Thyrotropin [Units/v olume] in Serum or Plasma Renard Walker MD Work Phone: Plan of Treatment Date Care Activity Detail Author Start: 08-28-2047 RSV Immunization for Adults (1 - 1-dose 75+ series) RSV Immunization for Adults (1 - 1-dose 75+ series) [facility] Start: 2032 RSV Immunization age d 60 or older (1 - 1-dose 60+ series) RSV Immunization aged 60 or older (1 - 1-dose 60+ series) [facility] Start: 05-26-2025 Thyroid stimulating hormone measurement TSH Level [facility] Start: 04-17-2025 Diabetes mellitus screening Diabetes Screening [facility] Start: 12-09-2024 HPV TESTING HPV TESTING [facility] Start: 12-09-2024 PAP TESTING PAP TESTING [facility] Start: 12-03-2024 [facility] Start: 12-03-2024 [facility] Start: 09-07-2024 COVID-19 Vaccine ( season) COVID-19 Vaccine ( season) [facility] Comment on above: Postponed from 01/10 (Patient Refused) Start: 09-07-2024 Depression Screening Depression Scre ening [facility] Start: 09-07-2024 DTaP/Tdap/Td Vaccine s (1 - Tdap) DTaP/Tdap/Td Vaccines (1 - Tdap) [facility] Comment on above: Postponed from 08/27 (Patient Refused) Start: 09-07-2024 Hepatitis B Vaccines (1 of 3 - 19+ 3-dose series) Hepatitis B Vaccines (1 of 3 - 19+ 3-dose series) [facility] Comment on above: Postponed from 08/27 (Patient Refused) Start: 09-07-2024 Screening for malign ant neoplasm of colon Colorectal Cancer Screening [facility] Comment on above: Postponed from 08/27 (Patient Refused) Start: 09-07-2024 Thyroid stimulating hormone measurement TSH Level [facility] Start: 09-07-2024 Zoster Vaccines (1 of 2) Zoster Vacc laury (1 of 2) [facility] Comment on above: Postponed from 08/27 (Patient Refused) Start: 05-26-2024 End: 05-26-2025 Thyrotropin [Units/volume] in Serum or Plasma TSH Lab Routine Hypothyroidism (acquired) Expected: 05/26/2024 (Approximate), Expires: 05/26/2025 [facility] Work Phone: Comment on above: Expected: 05/26/2024 (Approximate), Expires: 05/26/2025 Start: 05-26-2024 End: 05-26-2024 Patient encounter procedure 05/26/2024 1:00 PM EST Office Visit [facility] [address] [place] [address] Letty Alfonso, CLUTCH INSPECTOR - RADIATION CONTROL TECHNICIAN [address] [place] [address] [facility] Start: 05-20-2024 End: 05-20-2025 Thyrotropin [Units/volume] in Serum or Plasma TSH Lab Routine Hypothyroidism (acquired) Expected: 05/20/2024 (Approximate), Expires: 05/20/2025 [facility] Work Phone: Comment on above: Expected: 05/20/2024 (Approximate), Expires: 05/20/2025 Start: 01-11-2024 COVID-19 Vaccine ( season) COVID-19 Vaccine () [facility] Start: 01-11-2024 Influenza vaccination [facility] Start: 01-02-2024 Screening for malign ant neoplasm of cervix Cervical Cancer Screening [facility] Comment on above: Postponed from 08/27 (Other Medical Reasons) Start: 09-08-2023 End: 09-07-2024 CBC panel - Blood by Automated count CBC Lab Routine Screening for deficiency anemia Expected: 09/08/2023 (Approximate), Expires: 09/07/2024 [facility] Comment on above: Expected: 09/08/2023 (Approximate), Expires: 09/07/2024 Start: 09-08-2023 End: 09-07-2024 Comprehensive metabolic 1998 panel - Serum or Plasma Comprehensive metabolic panel Lab Routine Screening for diabetes mellitus Expected: 09/08/2023 (Approximate), Expires: 09/07/2024 [facility] Work Phone: Comment on above: Expected: 09/08/2023 (Approximate), Expires: 09/07/2024 Start: 09-08-2023 End: 09-07-2024 Lipid 1996 panel - Serum or Plasma Lipid panel Lab Routine Screening for cholesterol level Expected: 09/08/2023 (Approximate), Expires: 09/07/2024 [facility] Comment on above: Expected: 09/08/2023 (Approximate), Expires: 09/07/2024 Start: 09-08-2023 End: 09-07-2024 Thyrotropin [Units/volume] in Serum or Plasma TSH Lab Routine Hypothyroidism (acquired) Expected: 09/08/2023 (Approximate), Expires: 09/07/2024 [facility] Comment on above: Expected: 09/08/2023 (Approximate), Expires: 09/07/2024 Start: 04-17-2023 COVID-19 Vaccine (#1) COVID-19 Vacci ne (#1) [facility] Comment on above: Postponed from 02/26 (Patient Refused) Start: 04-17-2023 Depression Screening Depression Scre ening [facility] Start: 04-17-2023 DTaP/Tdap/Td Vaccine s (1 - Tdap) DTaP/Tdap/Td Vaccines (1 - Tdap) [facility] Comment on above: Postponed from 08/27 (Patient Refused) Start: 04-17-2023 Hepatitis B Vaccines (1 of 3 - 3-dose series) Hepatitis B Vaccines (1 of 3 - 3-dose series) [facility] Comment on above: Postponed from 08/27 (Patient Refused) Start: 04-17-2023 Hepatitis C screening Hepatitis C Sc reening [facility] Comment on above: Postponed from 08/27 (Patient Refused) Start: 04-17-2023 HIV screening HIV Screening [facility] Comment on above: Postponed from 08/27 (Patient Refused) Start: 04-17-2023 Screening for malign ant neoplasm of breast Mammogram [facility] Comment on above: Postponed from 08/27 (Patient Refused) Start: 04-17-2023 Screening for malign ant neoplasm of cervix Cervical Cancer Screening [facility] Comment on above: Postponed from 08/27 (Patient Refused) Start: 04-17-2023 Screening for malign ant neoplasm of colon Colorectal Cancer Screening [facility] Comment on above: Postponed from 08/27 (Patient Refused) Start: 04-17-2023 Thyroid stimulating hormone measurement TSH Level [facility] Start: 04-16-2023 End: 04-16-2023 Patient encounter procedure 04/16/2023 7:40 AM EST Office Visit [facility] [address] [place] [address] Giulia Rice, CLUTCH INSPECTOR - RADIATION CONTROL TECHNICIAN [address] [place] [address] [facility] Start: 01-10-2023 Influenza vaccination [facility] Start: 2022 Pneumococcal Vaccine : 50+ Years (1 of 1 - PCV) Pneumococcal Vaccine: 50+ Years (1 of 1 - PCV) [facility] Start: 2022 Zoster Vaccines (1 of 2) Zoster Vacc laury (1 of 2) [facility] Start: 01-10-2022 Influenza vaccination INFLUENZA (#1) [facility] Start: 2017 COLOGUARD (FIT-DNA) COLOGUARD (FIT-D NA) [facility] Start: 2017 Colonoscopy COLONOSCOPY [facility] Start: 2017 COLORECTAL CANCER SCREENING COLORECTAL CANCER SCREENING [facility] Start: [address] COLONOGRAPHY [facility] Start: 2017 DIABETES SCREEN DIABETES SCREEN [facility] Start: 2017 FECAL OCCULT BLOOD FECAL OCCULT BLOO D [facility] Start: 2017 LIPID SCREEN LIPID SCREEN [facility] Start: 2017 SIGMOIDOSCOPY SIGMOIDOSCOPY [facility] Start: 2012 Mammography MAMMOGRAM [facility] Start: 2002 Screening for malign ant neoplasm of cervix [facility] Start: 1993 Screening for malign ant neoplasm of cervix Pap Smear [facility] Start: 08-28-1991 Urine microalbumin profile DTAP,TDAP,TD (1 - Tdap) [facility] Start: 1990 Diabetes mellitus screening Diabetes Screening [facility] Start: 1990 HEPATITIS C SCREENING HEPATITIS C SC REENING [facility] Start: 1990 HIV SCREENING HIV SCREENING [facility] Start: 1984 Adult depression screening assessment DEPRESSION SCREENING [facility] Start: 02-26-1973 COVID-19 VACCINE (#1) COVID-19 VACCI NE (#1) [facility] Start: 1972 HEPATITIS B (1 of 3 - 3-dose series) HEPATITIS B (1 of 3 - 3-dose series) [facility] Start: 1972 Screening for malign ant neoplasm of colon [facility] Patient Education ED Poison Jarod Rash [facility] Work Phone: Patient referral [facility] Work Phone: Immunizations Immunization Date Immunization Notes Care Provider Ramesh rodriguez 1971 measles, mumps and r ubella virus vaccine Renard Walker MD Work Phone: [facility] Payers Date Payer Category Payer Commercial Managed C are - [employer] [id number] 2022 Unknown [id number] 2022 Self-pay 2022 Unknown [id number] 2018 Unknown [id number] Unknown [id number] Social History Date Type Detail Facility Start: 01-03-2022 End: 12-03-2024 Tobacco smoking status NHIS Never smoked tobacco [facility] Start: 01-03-2022 Tobacco use and exposure Smokeless tobacco non-user [facility] Start: 01-03-2022 End: 05-26-2024 Alcohol intake Current non-drinker of alcohol (finding) [facility] Start: 1970 Sex Assigned At Not on file [facility] Start: 12-24-2021 End: 01-03-2022 Exposure to SARS-CoV-2 (event) Not sure [facility] Start: 04-30-2022 End: 09-08-2023 History of Social function [facility] Start: 04-30-2022 End: 09-08-2023 Tobacco use panel [facility] Start: 11-12-2022 [facility] Start: 1970 Sex Assigned At Female [facility] Start: 12-10-2021 Sex Female (finding) [facility] Mental Status Date Assessment Result Facility 12-03-2024 Cognitive function Voice/Name [facility] Work Phone: Clinical Notes 01-03-2022 to 12-03-2024 Assessment & Plan Note - JOSEPHINE Covarrubias CNP - 05/26/2024 1:39 PM ESTAssessment & Plan Note - Letty Alfonso CLUTCH INSPECTOR [facility] - 05/26/2024 1:39 PM EST Note Date & Type Note Facility 12-03-2024 Discharge summary [facility] 12-03-2024 Radiology Diagnostic study note [facility] Imaging Services [address] [place], [place] [id number] Chest PA and Lateral MR#: [id number] Acct: [id number] Name: LITTLE GONSALES Rep #: [id number] : 1970 F 54 From: Andree Colby MD PCP: NELLIE Covarrubias Status: P RE ER Study:Chest PA and Lateral Date of Exam: 12/03/24 Exam# [id number] Ordering Dr: Gabrielle Akhtar DO PROCEDURE: CHEST PA AND LATERAL 12/03/2024 REASON FOR EXAM: CHEST PAIN TECHNIQUE: CHEST PA AND LATERAL COMPARISON: None FINDINGS: No focal consolidation. No pleural effusion or pneumothorax. Cardiac silhouette is within normal limits. No acute fractures. RAD/Chest PA and Lateral IMPRESSION: No focal consolidations. Reading Location: [id number] CC: RAILROAD SHOP INSPECTORYomaira Alfonso; Dr. Logan Akhtar, DO ~ Director Of Housing And Energy Services: Signed [facility] 05-26-2024 Evaluation + Plan note Associated Problem(s): Hypothyroidism (acquired) Check TSH today. Continue levothyroxine 112 mcg daily [facility] 05-26-2024 Miscellaneous Notes Associated Problem(s): Hypothyroidism (acquired) Check TSH today. Continue levothyroxine 112 mcg daily Associated Problem(s): Left shoulder strain, initial encounter Consistent with mild left shoulder strain. Recommend RICE, then starting exercises provided. Follow-up for worsening or failure for symptoms to continue to improve documented in this encounter [facility] 05-26-2024 Miscellaneous Notes Associated Problem(s): Hypothyroidism (acquired) Check TSH today. Continue levothyroxine 112 mcg daily Associated Problem(s): Left shoulder strain, initial encounter Consistent with mild left shoulder strain. Recommend RICE, then starting exercises provided. Follow-up for worsening or failure for symptoms to continue to improve Addended by: LETTY ALFONSO on: 05/27/2024 06:37 AM Modules accepted: Orders documented in this encounter [facility] 05-26-2024 Evaluation + Plan note Associated Problem(s): Left shoulder strain, initial encounter Consistent with mild left shoulder strain. Recommend RICE, then starting exercises provided. Follow-up for worsening or failure for symptoms to continue to improve [facility] 05-26-2024 History of Present illness Narrative Patient was identified by name and Date of . Health Maintenance Due Topic Cervical Cancer Screening-Ref to OBGYN Pneumococcal Vaccine-declined Influenza Vaccine-declined COVID-19 Vaccine-declined Images from the original note were not included. 05/26/2024 Little Gonsales (: 1970) is a 53 y.o. female , Established patient, here for evaluation of the following chief complaint(s): Medication Check and Health Maintenance (Cervical Cancer Screening-Ref to OBGYN/Pneumococcal Vaccine-declined/Influenza Vaccine-declined/COVID-19 Vaccine-declined/) ASSESSMENT/PLAN: 1. Hypothyroidism (acquired) Assessment & Plan: Check TSH today. Continue levothyroxine 112 mcg daily Orders: - TSH 2. Left shoulder strain, initial encounter Assessment & Plan: Consistent with mild left shoulder strain. Recommend RICE, then starting exercises provided. Follow-up for worsening or failure for symptoms to continue to improve Follow up in about 1 year (around 05/26/2025) for as directed pending test results. SUBJECTIVE/OBJECTIVE: HPI - Little Gonsales (: 1970) is a 53 y.o. female , Established patient, here for the evaluation of the following chief complaint(s): Medication Check and Health Maintenance (Cervical Cancer Screening-Ref to OBGYN/Pneumococcal Vaccine-declined/Influenza Vaccine-declined/COVID-19 Vaccine-declined/) Patient presents for med check today, denies any acute concerns. Declines any blood work today other than TSH. Reports taking her levothyroxine 112 mcg consistently with only occasional missed dose. Patient does report she occasionally has some soreness of her left shoulder usually flared up after skiing. No numbness or tingling and range of motion is only minimally affected with raising arm above the head. Prior to Admission medications Medication Sig Start Date End Date Taking? Authorizing Provider levothyroxine (Synthroid) 112 MCG tablet TAKE 1 TABLET BY MOUTH ONCE A DAY 07/15/23 Yes Renard Walker MD Review of Systems Constitutional: Negative. HENT: Negative. Respiratory: Negative. Cardiovascular: Negative. Gastrointestinal: Negative. Genitourinary: Negative for difficulty urinating. Musculoskeletal: Negative. Neurological: Negative. Psychiatric/Behavioral: Negative. Vitals: 05/26/24 1300 BP: 119/66 Pulse: 75 Resp: 20 Temp: 36.8 C (98.3 F) TempSrc: Infrared SpO2: 96% Weight: 178 lb 12.8 oz (81.1 kg) Physical Exam Constitutional: General: She is not in acute distress. Appearance: Normal appearance. She is not ill-appearing. HENT: Head: Normocephalic and atraumatic. Mouth/Throat: Mouth: Mucous membranes are moist. Pharynx: Oropharynx is clear. No oropharyngeal exudate or posterior oropharyngeal erythema. Eyes: Conjunctiva/sclera: Conjunctivae normal. Cardiovascular: Rate and Rhythm: Normal rate and regular rhythm. Pulses: Normal pulses. Heart sounds: Normal heart sounds. Pulmonary: Effort: Pulmonary effort is normal. Breath sounds: Normal breath sounds. Musculoskeletal: Left shoulder: Decreased range of motion. Comments: Very slight decreased shoulder abduction, otherwise normal range of motion Lymphadenopathy: Cervical: No cervical adenopathy. Neurological: Mental Status: She is alert and oriented to person, place, and time. Psychiatric: Mood and Affect: Mood normal. Behavior: Behavior normal. Thought Content: Thought content normal. Judgment: Judgment normal. An electronic signature was used to authenticate this note. JOSEPHINE Green CNP 05/26/2024 1:39 PM documented in this encounter [facility] 05-26-2024 History of Present illness Narrative Patient was identified by name and Date of . Health Maintenance Due Topic Cervical Cancer Screening-Ref to OBGYN Pneumococcal Vaccine-declined Influenza Vaccine-declined COVID-19 Vaccine-declined Images from the original note were not included. 05/26/2024 Little Gonsales (: 1970) is a 53 y.o. female , Established patient, here for evaluation of the following chief complaint(s): Medication Check and Health Maintenance (Cervical Cancer Screening-Ref to OBGYN/Pneumococcal Vaccine-declined/Influenza Vaccine-declined/COVID-19 Vaccine-declined/) ASSESSMENT/PLAN: 1. Hypothyroidism (acquired) Assessment & Plan: Check TSH today. Continue levothyroxine 112 mcg daily Orders: - TSH 2. Left shoulder strain, initial encounter Assessment & Plan: Consistent with mild left shoulder strain. Recommend RICE, then starting exercises provided. Follow-up for worsening or failure for symptoms to continue to improve Follow up in about 1 year (around 05/26/2025) for as directed pending test results. SUBJECTIVE/OBJECTIVE: HPI - Little Gonsales (: 1970) is a 53 y.o. female , Established patient, here for the evaluation of the following chief complaint(s): Medication Check and Health Maintenance (Cervical Cancer Screening-Ref to OBGYN/Pneumococcal Vaccine-declined/Influenza Vaccine-declined/COVID-19 Vaccine-declined/) Patient presents for med check today, denies any acute concerns. Declines any blood work today other than TSH. Reports taking her levothyroxine 112 mcg consistently with only occasional missed dose. Patient does report she occasionally has some soreness of her left shoulder usually flared up after skiing. No numbness or tingling and range of motion is only minimally affected with raising arm above the head. Prior to Admission medications Medication Sig Start Date End Date Taking? Authorizing Provider levothyroxine (Synthroid) 112 MCG tablet TAKE 1 TABLET BY MOUTH ONCE A DAY 07/15/23 Yes Renard Walker MD Review of Systems Constitutional: Negative. HENT: Negative. Respiratory: Negative. Cardiovascular: Negative. Gastrointestinal: Negative. Genitourinary: Negative for difficulty urinating. Musculoskeletal: Negative. Neurological: Negative. Psychiatric/Behavioral: Negative. Vitals: 05/26/24 1300 BP: 119/66 Pulse: 75 Resp: 20 Temp: 36.8 C (98.3 F) TempSrc: Infrared SpO2: 96% Weight: 178 lb 12.8 oz (81.1 kg) Physical Exam Constitutional: General: She is not in acute distress. Appearance: Normal appearance. She is not ill-appearing. HENT: Head: Normocephalic and atraumatic. Mouth/Throat: Mouth: Mucous membranes are moist. Pharynx: Oropharynx is clear. No oropharyngeal exudate or posterior oropharyngeal erythema. Eyes: Conjunctiva/sclera: Conjunctivae normal. Cardiovascular: Rate and Rhythm: Normal rate and regular rhythm. Pulses: Normal pulses. Heart sounds: Normal heart sounds. Pulmonary: Effort: Pulmonary effort is normal. Breath sounds: Normal breath sounds. Musculoskeletal: Left shoulder: Decreased range of motion. Comments: Very slight decreased shoulder abduction, otherwise normal range of motion Lymphadenopathy: Cervical: No cervical adenopathy. Neurological: Mental Status: She is alert and oriented to person, place, and time. Psychiatric: Mood and Affect: Mood normal. Behavior: Behavior normal. Thought Content: Thought content normal. Judgment: Judgment normal. An electronic signature was used to authenticate this note. JOSEPHINE Green CNP 05/26/2024 1:39 PM documented in this encounter [facility] 05-26-2024 Note Addended by: LETTY EMMANUEL on: 05/27/2024 06:37 AM Modules accepted: Orders [facility] 05-20-2024 Telephone encounter Note Noted. Agree with disposition. [facility] 05-20-2024 Miscellaneous Notes Noted. Agree with disposition. Notified, she states she will have it drawn at the appointment, not prior. Name of caller: Little Contact phone number: [phone] Relationship to Patient: patient Provider: Letty GRULLON Practice: [facility] Chief Complaint/Reason for Call: Patient stated she is scheduled for med refill appointment on 05/26/24 and is inquiring if Letty wants to put the lab order in before her appointment to check her thyroid. Patient stated she is not interested in checking her cholesterol. Please advise. Thank you. Best time of day caller can be reached: any Patient advised that office/PCP has 24-48 business hours to return their call: No documented in this encounter [facility] 05-20-2024 Telephone encounter Note Notified, she states she will have it drawn at the appointment, not prior. [facility] 05-20-2024 Telephone encounter Note Name of caller: Little Contact phone number: [phone] Relationship to Patient: patient Provider: Letty GRULLON Practice: [facility] Chief Complaint/Reason for Call: Patient stated she is scheduled for med refill appointment on 05/26/24 and is inquiring if Letty wants to put the lab order in before her appointment to check her thyroid. Patient stated she is not interested in checking her cholesterol. Please advise. Thank you. Best time of day caller can be reached: any Patient advised that office/PCP has 24-48 business hours to return their call: No [facility] 09-08-2023 Evaluation + Plan note Associated Problem(s): Pure hypercholesterolemia Check lipid panel. Currently not on any medications. [facility] 09-08-2023 Evaluation + Plan note Associated Problem(s): Hypothyroidism (acquired) Check TSH today. Continue levothyroxine 112 mcg daily [facility] 09-08-2023 Miscellaneous Notes Associated Problem(s): Pure hypercholesterolemia Check lipid panel. Currently not on any medications. Associated Problem(s): Hypothyroidism (acquired) Check TSH today. Continue levothyroxine 112 mcg daily documented in this encounter [facility] 09-08-2023 History of Present illness Narrative Patient was identified by name and Date of . Health Maintenance Addressed with Patient at Visit: HIV/Hep C-declined Colon-declined Tdap-declined Pap-declined Hep B-declined Mammo-pended Zoser-declined Covid-declined PHQ-completed TSH-pended Images from the original note were not included. 09/08/2023 Little Gonsales (: 1970) is a 53 y.o. female , Established patient, here for evaluation of the following chief complaint(s): Annual Exam and Health Maintenance (/HIV/Hep C-declined/Colon-declined/Tdap-dec lined/Pap-declined/Hep B-declined/Mammo-pended/Zoser-decl ined/Covid-declined/PHQ-completed/ TSH-pended) ASSESSMENT/PLAN: 1. Annual physical exam 2. Screening for cholesterol level - Lipid panel 3. Screening for deficiency anemia - CBC 4. Screening for diabetes mellitus - Comprehensive metabolic panel 5. Hypothyroidism (acquired) Assessment & Plan: Check TSH today. Continue levothyroxine 112 mcg daily Orders: - TSH 6. Pure hypercholesterolemia Assessment & Plan: Check lipid panel. Currently not on any medications. 7. Mammogram declined 8. Pap smear of cervix declined 9. Colon cancer screening declined Follow up for as directed pending test results. SUBJECTIVE/OBJECTIVE: PRIYA Gonsales (: 1970) is a 53 y.o. female , Established patient, here for the evaluation of the following chief complaint(s): Annual Exam and Health Maintenance (/HIV/Hep C-declined/Colon-declined/Tdap-dec lined/Pap-declined/Hep B-declined/Mammo-pended/Zoser-decl ined/Covid-declined/PHQ-completed/ TSH-pended) Presents for her annual physical with fasting labs. Declines mammogram. Declines Pap smear. Declines colon cancer screening. Reports overall is feeling pretty well. Things at home are going okay however her suffers from bipolar disorder currently manic. She states she has limited time for today's appointment due to he has an appointment at [place] [facility] at 9:30 AM this morning. She reports that she has been handling everything pretty well and has set up some counseling services for herself online that starts soon. She has no acute complaints today. Prior to Admission medications Medication Sig Start Date End Date Taking? Authorizing Provider levothyroxine (Synthroid) 112 MCG tablet TAKE 1 TABLET BY MOUTH ONCE A DAY 07/15/23 Yes Renard Walker MD Review of Systems Constitutional: Negative. HENT: Negative. Respiratory: Negative. Cardiovascular: Negative. Genitourinary: Negative. Neurological: Negative. Psychiatric/Behavioral: Negative for agitation, decreased concentration, dysphoric mood, hallucinations, self-injury, sleep disturbance and suicidal ideas. The patient is not nervous/anxious. Vitals: 09/08/23 0814 BP: 118/60 Pulse: 57 Resp: 18 Temp: 36.6 C (97.9 F) TempSrc: Infrared SpO2: 97% Weight: 170 lb (77.1 kg) Height: 5' 7" (1.702 m) Physical Exam Constitutional: General: She is not in acute distress. Appearance: Normal appearance. She is normal weight. She is not ill-appearing. HENT: Head: Normocephalic and atraumatic. Right Ear: Tympanic membrane, ear canal and external ear normal. There is no impacted cerumen. Left Ear: Tympanic membrane, ear canal and external ear normal. There is no impacted cerumen. Nose: Nose normal. No congestion or rhinorrhea. Mouth/Throat: Mouth: Mucous membranes are moist. Pharynx: Oropharynx is clear. Uvula midline. No oropharyngeal exudate or posterior oropharyngeal erythema. Eyes: Conjunctiva/sclera: Conjunctivae normal. Pupils: Pupils are equal, round, and reactive to light. Cardiovascular: Rate and Rhythm: Normal rate and regular rhythm. Pulses: Normal pulses. Heart sounds: Normal heart sounds. Pulmonary: Effort: Pulmonary effort is normal. No respiratory distress. Breath sounds: Normal breath sounds. Abdominal: General: Abdomen is flat. Bowel sounds are normal. Palpations: Abdomen is soft. Tenderness: There is no abdominal tenderness. There is no right CVA tenderness or left CVA tenderness. Musculoskeletal: General: Normal range of motion. Cervical back: Normal range of motion and neck supple. No rigidity or tenderness. Lymphadenopathy: Cervical: No cervical adenopathy. Skin: General: Skin is warm and dry. Findings: No erythema or rash. Neurological: General: No focal deficit present. Mental Status: She is alert and oriented to person, place, and time. Psychiatric: Mood and Affect: Mood normal. Behavior: Behavior normal. An electronic signature was used to authenticate this note. JOSEPHINE Covarrubias CNP 09/08/2023 8:49 AM documented in this encounter [facility] 01-31-2023 Telephone encounter Note Patients mail order pharmacy has changed and she needs a new script sent to the new mail order. Prescription Request: Last medication check: none Last physical exam: 04/17/22 Next scheduled appointment: 04/16/23 Last date of refill on this medication 10/29/22 90 days 1 refill--to old mail order. [facility] 01-31-2023 Miscellaneous Notes Patients mail order pharmacy has changed and she needs a new script sent to the new mail order. Prescription Request: Last medication check: none Last physical exam: 04/17/22 Next scheduled appointment: 04/16/23 Last date of refill on this medication 10/29/22 90 days 1 refill--to old mail order. documented in this encounter [facility] 01-06-2023 Evaluation + Plan note Associated Problem(s): Acute non-recurrent frontal sinusitis Discussed with patient most likely viral illness and antibiotics not likely to help. Nontoxic-appearing no acute distress recommend testing for COVID at home. Will provide azithromycin prescription if symptoms do not improve. Start nasal sprays as discussed for congestion. Ibuprofen or Tylenol for pain if needed [facility] 01-06-2023 Miscellaneous Notes Associated Problem(s): Acute non-recurrent frontal sinusitis Discussed with patient most likely viral illness and antibiotics not likely to help. Nontoxic-appearing no acute distress recommend testing for COVID at home. Will provide azithromycin prescription if symptoms do not improve. Start nasal sprays as discussed for congestion. Ibuprofen or Tylenol for pain if needed documented in this encounter [facility] 01-06-2023 History of Present illness Narrative Images from the original note were not included. Patient was seen today via Telehealth by agreement and consent. I used the following Telehealth technology: Audio and video capabilities. Patient location: Patient Location: Home. This patient encounter is appropriate and reasonable under the circumstances: too sick to leave home . The patient has been advised of the potential risks and limitations of this mode of treatment (including but not limited to the absence of in-person examination) and has agreed to be treated in a remote fashion in spite of them. Any and all of the patient's/patient's family's questions on this issue have been answered and I have made no promises or guarantees to the patient. The patient has also been advised to contact this office for worsening conditions or problems, and seek emergency medical treatment and/or call 911 if the patient deems either necessary. The patient stated that they are currently in the state of [place]. If the patient is a minor, permission has been obtained by the parent or guardian for the patient to receive medical care at this visit. 01/06/2023 Little Gonsales (: 1970) is a 52 y.o. female , Established patient, here for evaluation of the following chief complaint(s): Sinus Problem ASSESSMENT/PLAN: 1. Acute non-recurrent frontal sinusitis Assessment & Plan: Discussed with patient most likely viral illness and antibiotics not likely to help. Nontoxic-appearing no acute distress recommend testing for COVID at home. Will provide azithromycin prescription if symptoms do not improve. Start nasal sprays as discussed for congestion. Ibuprofen or Tylenol for pain if needed Orders: - azithromycin (Zithromax) 250 MG tablet; Take 2 tabs (500 mg) by mouth today, than 1 daily for 4 days., Normal Follow up if symptoms worsen or fail to improve. SUBJECTIVE/OBJECTIVE: HPI - Little Gonsales (: 1970) is a 52 y.o. female , Established patient, here for the evaluation of the following chief complaint(s): Sinus Problem Increased congestion, headache. Symptoms started 3 days ago. No fever, but felt chilled this morning. Cough productive, congestion. Mild shortness of breath. Has taken immune vitamin C, hot tea. Increased fluids, has [place] pot at home but has not started using yet. Reports normally would not have called in for her concerns so soon into her illness however has a parent who is on hospice and she is concerned about being sick for too long and not seeing her mom. Prior to Admission medications Medication Sig Start Date End Date Taking? Authorizing Provider levothyroxine (Synthroid, Levoxyl) 112 MCG tablet Take 1 tablet (112 mcg) by mouth daily. 10/29/22 Letty Alfonso APRN - RADIATION CONTROL TECHNICIAN Review of Systems Constitutional: Negative for chills, fatigue and fever. HENT: Positive for congestion, postnasal drip, sinus pressure and sinus pain. Negative for sore throat and trouble swallowing. Respiratory: Negative for cough and shortness of breath. Cardiovascular: Negative for chest pain. Gastrointestinal: Negative. Neurological: Positive for headaches. There were no vitals filed for this visit. Physical Exam Constitutional: Appearance: Normal appearance. She is ill-appearing (mild). HENT: Head: Normocephalic and atraumatic. Pulmonary: Effort: Pulmonary effort is normal. Comments: Speaking full sentences without difficulty Neurological: Mental Status: She is alert and oriented to person, place, and time. Psychiatric: Mood and Affect: Mood normal. Behavior: Behavior normal. An electronic signature was used to authenticate this note. JOSEPHINE Covarrubias CNP 01/06/2023 10:35 AM documented in this encounter [facility] 01-06-2023 Telephone encounter Note S: The patient is calling the [facility] about a sore throat B: This started Friday A: She has a scratchy sore throat with a lot of drainage. Most of it is nasal but she does have a mildly productive cough. No dyspnea or wheezing; no temperature. R: She was instructed to do a COVID test prior to the visit - she is just certain she must have a Z-Pack as she has had these at home but provided them for all her friends; there are none left. Care advice reviewed. Reason for Disposition Patient wants to be seen Protocols used: Sinus Pain or [id number] [facility] 01-06-2023 Miscellaneous Notes S: The patient is calling the [facility] about a sore throat B: This started Friday A: She has a scratchy sore throat with a lot of drainage. Most of it is nasal but she does have a mildly productive cough. No dyspnea or wheezing; no temperature. R: She was instructed to do a COVID test prior to the visit - she is just certain she must have a Z-Pack as she has had these at home but provided them for all her friends; there are none left. Care advice reviewed. Reason for Disposition Patient wants to be seen Protocols used: Sinus Pain or [id number] documented in this encounter [facility] 10-29-2022 Telephone encounter Note Reviewed chart. Refill appropriate. RX sent. [facility] 10-29-2022 Miscellaneous Notes Reviewed chart. Refill appropriate. RX sent. Prescription Request: Last medication check: not found Last physical exam: 04/17/22 Last completed appointment: Next scheduled appointment: 04/16/23 Last date of refill on this medication: 05/10/22 documented in this encounter [facility] 10-29-2022 Telephone encounter Note Prescription Request: Last medication check: not found Last physical exam: 04/17/22 Last completed appointment: Next scheduled appointment: 04/16/23 Last date of refill on this medication: 05/10/22 [facility] 01-03-2022 Note HNO ID: [id number] Author: Andre Santamaria APRN.CNP Service: ? Author Type: Nurse Practitioner Type: Progress Notes Filed: 01/03/2022 10:25 AM Note Text: This note was created using ticketstreetriter. Subjective Little Gonsales is a 51 year old female. HPI by patient: Little is a 51 yo female presenting to the office with the complaint of L ear pain Started approximately a few weeks ago, was at family reunion and had some ear trauma while swimming. Jumped in the water and landed on ear. Associated symptoms include L ear pain and decreased hearing in L ear Denies any other concerns Vaccinated for influenza: No Covid Immunization Dates Overdue - COVID-19 VACCINE (1) Overdue - never done No completion, postpone, frequency change, or communication history exists for this topic. Personal history of Covid: no Flu/RSV contacts: no Strep contacts: no Sick contacts: no Covid + contacts: no Travel in the last 14 days: no Smoking history/second hand smoke: no OTC ear candles, peroxide, colloidal silver drops No antibiotic use in the last 60 days. ALLERGIES No Known Allergies Family History Reviewed Including Cardiac Diseases, Psychiatric Diseases, AND Substance Abuse Problem: Hypertension Relation: Mother Age of Onset: (Not Specified) Problem: Stroke Relation: Other Age of Onset: (Not Specified) Comment: UNCLE Problem: Stroke Relation: Other Age of Onset: (Not Specified) Comment: GRANDMOTHER Problem: Thyroid Relation: Daughter Age of Onset: (Not Specified) Comment: hypo Problem: Thyroid Relation: Sister Age of Onset: (Not Specified) Comment: X-3 One Graves and 2 hypo Social History Tobacco Use Smoking status: Never Smokeless tobacco: Never Vaping Use Vaping Use: Never used Alcohol use: No Drug use: No Review of Systems Constitutional: Negative for chills and fever. HENT: Positive for ear discharge (mostly residual medications drops. Also got a lot of wax out after using ear candle), ear pain and hearing loss (decreased hearing). Negative for congestion, rhinorrhea and sore throat. Respiratory: Negative for cough. Cardiovascular: Negative for chest pain. Allergic/Immunologic: Negative for immunocompromised state. Hematological: Negative for adenopathy. Objective [facility] 11/26/2019 Physical Exam Vitals and nursing note reviewed. HENT: Right Ear: Ear canal normal. A middle ear effusion is present. Left Ear: Ear canal normal. Drainage (cerumen vs candle wax vs medication), swelling and tenderness present. A middle ear effusion is present. Nose: Nose normal. Mouth/Throat: Pharynx: Uvula midline. Cardiovascular: Rate and Rhythm: Normal rate and regular rhythm. Heart sounds: Normal heart sounds. Pulmonary: Effort: Pulmonary effort is normal. Breath sounds: Normal breath sounds. Lymphadenopathy: Cervical: No cervical adenopathy. Skin: General: Skin is warm and dry. Neurological: Mental Status: She is alert and oriented to person, place, and time. Assessment and Plan ASSESSMENT/PLAN: 1. Acute otitis externa of left ear, unspecified type - ICD9: 380.10, ICD10: H60.502 - CIPROFLOXACIN 0.3 %-DEXAMETHASONE 0.1 % EAR DROPS,SUSPENSION - FLUTICASONE PROPIONATE 50 MCG/ACTUATION NASAL SPRAY,SUSPENSION Andre Santamaria APRN.CNP Medical Decision Making: Problems: Moderate: New problem with uncertain prognosis Data: Unique test result(s) reviewed: 1 Risk: Moderate: Drug management Medical Decision Making Level: 4 - Moderate Remove COVID19 association [facility] 01-03-2022 Miscellaneous Notes Addended by: ANDRE SANTAMARIA on: 01/03/2022 10:27 AM Modules accepted: Orders documented in this encounter [facility] 01-03-2022 History of Present illness Narrative This note was created using PlayerTakesAll. Subjective Little Gonsales is a 51 year old female. HPI by patient: Little is a 51 yo female presenting to the office with the complaint of L ear pain Started approximately a few weeks ago, was at family reunion and had some ear trauma while swimming. Jumped in the water and landed on ear. Associated symptoms include L ear pain and decreased hearing in L ear Denies any other concerns Vaccinated for influenza: No Covid Immunization Dates Overdue - COVID-19 VACCINE (1) Overdue - never done No completion, postpone, frequency change, or communication history exists for this topic. Personal history of Covid: no Flu/RSV contacts: no Strep contacts: no Sick contacts: no Covid + contacts: no Travel in the last 14 days: no Smoking history/second hand smoke: no OTC ear candles, peroxide, colloidal silver drops No antibiotic use in the last 60 days. ALLERGIES No Known Allergies Family History Reviewed Including Cardiac Diseases, Psychiatric Diseases, & Substance Abuse Problem: Hypertension Relation: Mother Age of Onset: (Not Specified) Problem: Stroke Relation: Other Age of Onset: (Not Specified) Comment: UNCLE Problem: Stroke Relation: Other Age of Onset: (Not Specified) Comment: GRANDMOTHER Problem: Thyroid Relation: Daughter Age of Onset: (Not Specified) Comment: hypo Problem: Thyroid Relation: Sister Age of Onset: (Not Specified) Comment: X-3 One Graves and 2 hypo Social History Tobacco Use Smoking status: Never Smokeless tobacco: Never Vaping Use Vaping Use: Never used Alcohol use: No Drug use: No Review of Systems Constitutional: Negative for chills and fever. HENT: Positive for ear discharge (mostly residual medications drops. Also got a lot of wax out after using ear candle), ear pain and hearing loss (decreased hearing). Negative for congestion, rhinorrhea and sore throat. Respiratory: Negative for cough. Cardiovascular: Negative for chest pain. Allergic/Immunologic: Negative for immunocompromised state. Hematological: Negative for adenopathy. Objective [facility] 11/26/2019 Physical Exam Vitals and nursing note reviewed. HENT: Right Ear: Ear canal normal. A middle ear effusion is present. Left Ear: Ear canal normal. Drainage (cerumen vs candle wax vs medication), swelling and tenderness present. A middle ear effusion is present. Nose: Nose normal. Mouth/Throat: Pharynx: Uvula midline. Cardiovascular: Rate and Rhythm: Normal rate and regular rhythm. Heart sounds: Normal heart sounds. Pulmonary: Effort: Pulmonary effort is normal. Breath sounds: Normal breath sounds. Lymphadenopathy: Cervical: No cervical adenopathy. Skin: General: Skin is warm and dry. Neurological: Mental Status: She is alert and oriented to person, place, and time. Assessment and Plan ASSESSMENT/PLAN: 1. Acute otitis externa of left ear, unspecified type - ICD9: 380.10, ICD10: H60.502 - CIPROFLOXACIN 0.3 %-DEXAMETHASONE 0.1 % EAR DROPS,SUSPENSION - FLUTICASONE PROPIONATE 50 MCG/ACTUATION NASAL SPRAY,SUSPENSION Andre Santamaria APRN.CNP Medical Decision Making: Problems: Moderate: New problem with uncertain prognosis Data: Unique test result(s) reviewed: 1 Risk: Moderate: Drug management Medical Decision Making Level: 4 - Moderate Remove COVID19 association documented in this encounter [facility] Discharge summary Note Date/Time December 03, 2024 11:04am [facility] Medical Records Department [address] [place] [address] Emergency Department Summary 12/03/24 MR#: [id number] Acct: [id number] Name: LITTLE GONSALES Rep #:[id number] : 1970 54 From: Logan Akhtar DO PCP: Letty Alfonso NP-C Status:R EG ER Location: ED HPI History of Present Illness Chief Complaint: Chest Pain Narrative Narrative: Patient is a 54-year-old female past medical history hypothyroidism who presentsto the emergency department chief complaint of chest pain. Patient states that she has had chest pain off-and-on and states that she not necessarily does anything specific to bring this on. Patient states that she follows with a chiropractor as her "ribs are out of place". States that on Friday she had an episode where she had pain in the middle of her chest. She states that she feels like it is hard for her to take a deep breath she states that she followedup with a chiropractor that did an adjustment and this did not help her symptoms. She told the on-call nurse for the primary care physician and they advised her to come here to be evaluated from a cardiac standpoint. Patient denies any recent travel history denies any history of blood clots. Patient denies any smoking, drug use or alcohol use. [facility] Medical History Hypothyroidism Home Medications ?Medication ?Instructions ?Recorded ?Last Taken ?Type prednisone 20 mg tablet 60 mg (3 x 20 mg) PO DAILY # 15 11/12/22 Unknown Rx TABLETS Allergy/AdvReac Type Severity Reaction Status Date / Time No Known Allergies Allergy Verified 12/03/24 07:57 Surgical History H/O section Social History Smoking Status: Never smoker ROS ROS ED ROS Narrative Constitutional: Denies any fevers, chills, headaches, lightness, dizziness Cardiovascular: Denies any chest pain currently but complains of chest pain as above Respiratory: Complains of difficulty taking a deep breath denies coughing wheezing Abdomen: Denies abdominal pain nausea vomit diarrhea : Denies any urine symptoms Neurological: Denies any numbness, wheeze, tingling Musculoskeletal: Denies back pain Skin: Denies any rashes or lesions EXAM Physical Exam Narrative Exam Narrative: General: Patient was lying in bed rest comfortably did not appear to be in acutedistress Head: Atraumatic, normocephalic Eyes: PERRL bilaterally, EOMI bilaterally, no conjunctival injection noted Neck: Soft, supple, trachea midline Cardiovascular: Regular rate and rhythm Respiratory: Clear to auscultation bilaterally Abdomen: Soft, nondistended Extremities: Radial pulses +2/4 in the bilateral extremities, +5/5 strength noted in the bilateral upper and lower extremities Neurological: Patient follow commands that she was at [facility] year is 2024 Skin: Warm, dry, intact Const Vital Signs: 12/03/24 07:53 12/03/24 07:59 12/03/24 08:15 Temperature 99.7 F H Temperature Source Oral Pulse Rate 75 Respiratory Rate 15 Respiratory Pattern Normal Blood Pressure 136/76 H Blood Pressure Mean 96 Pulse Ox 98 Oxygen Delivery Method Room Air Room Air 12/03/24 08:53 12/03/24 10:00 Temperature Temperature Source Pulse Rate 62 61 Respiratory Rate 20 H 18 Respiratory Pattern Blood Pressure 142/60 H Blood Pressure Mean 87 Pulse Ox 97 99 Oxygen Delivery Method Room Air MDM MDM MDM Narrative Medical decision making narrative: Patient is a 54-year-old female who presents to the emergency department from the chief complaint chest pain and difficulty taking a deep breath. On the differential diagnose includes but element to ACS, pneumonia, pneumothorax, PE. Once workup is obtained reviewed she will be reevaluated. Patient is pain-free at this point time. Patient CBC was reviewed showed no evidence leukocytosis white blood count normal at 5.5, he was 14.5, plate count of 312. Patient D-dimer negative at 0.32. Patient sodium normal 137, potassium normal 3.9, creatinine was normal at0.91. Patient's troponin was less than 6 with a delta troponin of less than 6. Patient's EKG showed sinus rhythm rate of 72 bpm. Patient's chest x-ray reviewed by myself and by radiology showed no acute focal consolidations. HEART Score for Major Cardiac Events from [email or web address] on 12/03/2024 All calculations should be rechecked by clinician prior to use RESULT SUMMARY: 1 points Low Score (0-3 points) Risk of MACE of 0.9-1.7%. INPUTS: History ?> 0 = Slightly suspicious EKG ?> 0 = Normal Age ?> 1 = 45-64 Risk factors ?> 0 = No known risk factors Initial troponin ?> 0 = <=ormal limit On reevaluation the patient she is feeling better she would like to go home at this point in time. Patient was advised that she needs to call her primary carephysician and obtain stress test in the outpatient setting. Patient's heart score is low risk. She is agreeable this plan all question concerns answered she was discharged home in stable condition. Lab Data Labs: Laboratory Results - last 24 hr 12/03/24 12/03/24 08:10 10:15 WBC 5.5 RBC 4.51 Hgb 14.5 Hct 41.9 MCV 92.9 MCH 32.2 H MCHC 34.6 RDW Std Deviation 40.9 RDW Coeff of Og 12.0 Plt Count 312 MPV 9.6 Immature Gran % (Auto) 0.700 Neut % (Auto) 64.5 Lymph % (Auto) 22.8 [place] % (Auto) 8.9 Eos % (Auto) 1.8 Baso % (Auto) 1.3 H Absolute Neuts (auto) 3.5 Absolute Lymphs (auto) 1.25 Nucleated RBC % 0 D-Dimer Quant (PE/DVT) 0.32 Sodium 137 Potassium 3.9 Chloride 103 Carbon Dioxide 22.1 Anion Gap 12 BUN 18 Creatinine 0.91 Estim Creat Clear Calc 78.44 Est GFR (MDRD) Non-Af 76 BUN/Creatinine Ratio 19.6 Glucose 135 H Calcium 9.3 Troponin T High Sens < 6 Troponin T Hi Sens 2 Hr < 6 Radiography Diagnostic Testing: Clinical Impression(s) from Imaging Studies Chest X-Ray 12/03/24 08:30 IMPRESSION: No focal consolidations. Reading Location: [facility] Discharge Plan Triage Chief Complaint: Chest Pain ED Provider: Logan Akhtar Dx/Rx/DC Orders Clinical Impression: Chest pain, Hypothyroidism Prescriptions: No Action prednisone 20 mg tablet 60 mg PO DAILY Qty: 15 0RF Primary Care Provider: Letty Alfonso Referrals: Letty Alfonso [employer]RO[employer] INSPECTOR-C [Primary Care Provider] - Activity Restrictions/Additional Instructions: Follow-up with your doctor in the outpatient setting. Have a cardiac stress test obtained. Return with worsening symptoms or any other concerns in the meantime. Your blood work here today did not show any acute findings your chestx-ray was normal. Print Language: Palestinian Disposition Disposition: Home, Self Care What to do if you have Problems For any increased pain, shortness of breath, bleeding, nausea or vomiting, chestpain, or any unexpected problems, contact your Primary Care Provider. Call [facility] ([phone]) or report to the closest Emergency Room. Call 911 if necessary. 12/03/24 1104 <Electronically signed by Logan Akhtar DO> Cosigner Signature (if applicable): CC: NELLIE Alfonso ~ Signed [facility] Work Phone: Evaluation note* Diagnosis Acute otitis externa of left ear, unspecified type- Primary [facility] Diagnosis Hypothyroidism (acquired) Unspecified hypothyroidism documented [facility] encounter [facility]Bioformixaluation noteNo assessment information availableWAvita Health System Work Phone: Evaluation note* Diagnosis Acute non-recurrent frontal sinusitis- Primary [facility] Diagnosis Hypothyroidism (acquired) Unspecified hypothyroidism documented in this encounter [facility]* Diagnosis Annual physical exam- Primary Routine general medical examination at a health care facility Screening for cholesterol level Screening for deficiency anemia Screening for other and unspecified deficiency anemia Screening for diabetes mellitus Hypothyroidism (acquired) Unspecified hypothyroidism Pure hypercholesterolemia Mammogram declined Pap smear of cervix declined Colon cancer screening declined documented [facility]* Diagnosis Annual physical exam- Primary Routine general medical examination at a health care facility Screening for cholesterol level Screening for deficiency anemia Screening for other and unspecified deficiency anemia Screening for diabetes mellitus Hypothyroidism (acquired) Unspecified hypothyroidism Pure hypercholesterolemia Mammogram declined Pap smear of cervix declined Colon cancer screening declined Hypothyroidism (acquired)- Primary Unspecified hypothyroidism [facility] Diagnosis Annual physical exam- Primary Routine general medical examination at a health care facility Screening for cholesterol level Screening for deficiency anemia Screening for other and unspecified deficiency anemia Screening for diabetes mellitus Hypothyroidism (acquired) Unspecified hypothyroidism Pure hypercholesterolemia Mammogram declined Pap smear of cervix declined Colon cancer screening declined Hypothyroidism (acquired)- Primary Unspecified hypothyroidism Left shoulder strain, initial encounter [facility] Diagnosis Annual physical exam- Primary Routine general medical examination at a health care facility Screening for cholesterol level Screening for deficiency anemia Screening for other and unspecified deficiency anemia Screening for diabetes mellitus Hypothyroidism (acquired) Unspecified hypothyroidism Pure hypercholesterolemia Mammogram declined Pap smear of cervix declined Colon cancer screening declined Hypothyroidism (acquired)- Primary Unspecified hypothyroidism Left shoulder strain, initial encounter documented in this encounter [facility] Discharge instructionsAdditional Instructions Follow-up with your doctor in the outpatient setting. Have a cardiac stress test obtained. Return with worsening symptoms or any other concerns in the meantime. Your blood work here today did not show any acute findings your chest x-ray was normal.[facility] Work Phone: Instructions* Attachments The following attachments cannot be sent through Care Everywhere. * Oxymetazoline (Nasal), ADULT (Palestinian) documented [facility] this [facility]* Attachments The following attachments cannot be sent through Care Everywhere. * Rotator Cuff Tear Exercises (Palestinian) documented in this [facility]* Attachments The following attachments cannot be sent through Care Everywhere. * Rotator Cuff Tear Exercises (Palestinian) documented in this [facility] for referral (narrative)No reason for referral information availableWAvita Health System Work Phone: Summary Purpose Family History No Family History Records FoundNo Family History Records FoundNo Family History Records Found Advance Directives Advance Directive Response Recorded Date/ Time Living Will No November 12, 2022 1 0:24am Power of Heating Unit Installer No November 12, 2022 10:24am Advance Directive Response Recorded Date/ Time Do you have a Healthcare Pow er of Heating Unit Installer? Yes December 03, 2024 8:15am Name of Medical Power of Heating Unit Installer emily whyte December 03, 2024 8:15am Chief Complaint and Reason for Visit Chief Complaint HIVES Chief Complaint Admit Date chest pain December 03, 2024 7:52 am Additional Source Comments Source Comments (unrecognize d section and content) In the event this informatio n is protected by the Federal Confidentiality of Alcohol and Drug Abuse Patient Records regulations: The Federal rules restrict any use of the information to criminally investigate or prosecute any alcohol or drug abuse patient.[facility] Reason for Visit (unrecogniz ed section and content) Reason Comments Ear Pain Left ear has been hu rting since the end of November. States everything is muffled. She has tried peroxide and silver drops. Reason Onset Date Comments Med Refill 10/29/2022 Reason Onset Date Comments Sinusitis 01/06/2023 Reason Comments Sinus Problem Reason Onset Date Comments Med Refill 01/31/2023 Reason Comments Annual Exam Health Maintenance HIV/Hep C-declinedCo cyi-lvwnurduZltw-jzebopfxLyx-declinedHep D-kfrfyedgGqzaw-vyaevyBomqh-cjsczcauWbaaw-bniruzzxFXE-zbbjdmbhuJJE -pended Reason Onset Date Comments Lab Orders 05/20/2024 Reason Comments Medication Check Health Maintenance Cervical Cancer Scre ening-Ref to OBGYNPneumococcal Vaccine-declinedInfluenza [id number] Vaccine-declined Care Teams (unrecognized sec tion and content) Cookie Mixer Helper Relationship Specialty Start Date End Date Renard Walker [address] [place] [address] [phone] PCP - General 04/18/08 Cookie Mixer Helper Relationship Specialty Start Date End Date Renard Walker MD [address] [place] [address] [phone] PCP - General 07/14/15 Team Status: Active Member Role Status Dates No Primary Care Physician Primary Care Provider Active Team Status: Inactive Member Role Status Dates Dr. Mahamed Lynch , DO Emergency Provider Active No Primary Care Physician Primary Care Provider Active Cookie Mixer Helper Relationship Specialty Start Date End Date Renard Walker MD [address] [place] [address] [phone] PCP - General 07/14/15 Cookie Mixer Helper Relationship Specialty Start Date End Date Renard Walker MD [address] [facility] [place] [address] PCP - General 07/14/15 Cookie Mixer Helper Relationship Specialty Start Date End Date Renard Walker MD [address] [facility] [place] [address] PCP - General 07/14/15 Cookie Mixer Helper Relationship Specialty Start Date End Date Renard Walker [facility] [address] [facility] [place] [place] [address] PCP - General 07/14/15 Cookie Mixer Helper Relationship Specialty Start Date End Date Renard Walker MD [address] [facility] [place] [address] PCP - General 07/14/15 Cookie Mixer Helper Relationship Specialty Start Date End Date Renard Walker MD [address] [facility] [address] PCP - General 07/14/15 Cookie Mixer Helper Relationship Specialty Start Date End Date Renard Walker MD [address] [facility] [place] [address] PCP - General 07/14/15 Team Status: Active Member Role/Relationship Status Dates Letty Alfonso NP-C Primary Care Provider Active Team Status: Inactive Member Role/Relationship Status Dates Letty Alfonso NP-C Primary Care Provider Active Start: December 03, 2024 End: December 03, 2024 Dr. Logan Akhtar , DO Emergency Provider Active Start: December 03, 2024 End: December 03, 2024 INFORMATION SOURCE (unrecogn ized section and content) DATE CREATED AUTHOR 01/05/2022 [facility] DATE CREATED AUTHOR AUTHOR'S ORGANIZ ATION 11/19/2022 [facility] DATE CREATED AUTHOR AUTHOR'S ORGANIZ ATION 05/29/2024 [facility] Goals (unrecognized section and content) Goals may be documented in a n alternate sectionGoals may be documented in an alternate section FOR RECORDS PERTAINING TO PATIENTS WHO ARE OR HAVE BEEN ENROLLED IN A CHEMICAL DEPENDENCY/SUBSTANCEABUSE PROGRAM, SOME INFORMATION MAY BE OMITTED. This clinical summary was aggregated from multiple sources. Caution should be exercised in using it in the provision of clinical care. This summary normalizes information from multiple sources, and as a consequence, information in this document may materially change the coding, format and clinical context of patient data. In addition, data may be omitted in some cases. CLINICAL DECISIONS SHOULD BE BASED ON THE PRIMARY CLINICAL RECORDS. [employer] provides no warranty or guarantee of the accuracy or completeness of information in this document.
== END 2024-12-03 11:27 | disposition home or self-care (01) ==
PROVIDERS: Emergency Provider Emergency Medicine; PCP Nurse Practitioner Family; Visit Provider Emergency Medicine
DX: R07.9 Chest pain, unspecified (principal); E03.9 Hypothyroidism, unspecified
CPT/HCPCS: 71046; 80048; 84484; 85025; 85379; 93005; 96360; 96361; 99284; A4216